=== PATIENT | male | born 1975 ===

== ENCOUNTER 2018-02-18 20:52 | Inpatient (IN) | payer MEDICAID ==
--- NOTE | 2018-02-18 21:39 | C.PDOC ---
History Of Present Illness The patient presents to the ED for evaluation of substance abuse. Patient states he is depressed and he recently relapsed and used heroin. Patient is requesting detox and verbalizes suicidal ideation if he does not receive it. Otherwise, patient denies homicidal ideation and has no other complaints at this time. Time Seen by Provider: 02/18/18 21:39 Chief Complaint (Nursing): Substance Abuse History Per: Patient History/Exam Limitations: no limitations Onset/Duration Of Symptoms: Hrs Current Symptoms Are (Timing): Still Present Suicide/Self Injury Attempted (Context): None Modifying Factor(s): Narcotics (heroin) Severity: None Pain Scale Rating Of: 0 Associated Symptoms: Depression, Suicidal Thoughts. denies: Suicidal Plan Involuntary Hold By: None Recent travel outside of the [place]: No Additional History Per: Patient Past Medical History Reviewed: Historical Data, Nursing Documentation, Vital Signs Vital Signs: Last Vital Signs Temp 98 F 02/18/18 21:11 Pulse 88 02/18/18 21:11 Resp 20 02/18/18 21:11 BP 139/85 02/18/18 21:11 Pulse Ox 99 02/18/18 21:49 - Medical History PMH: Depression Surgical History: No Surg Hx Family History: States: Unknown Family Hx - Social History Hx Alcohol Use: No Hx Substance Use: Yes (heroin snorts) - Immunization History Hx Tetanus Toxoid Vaccination: No Hx Influenza Vaccination: No Hx Pneumococcal Vaccination: No Review Of Systems Constitutional: Negative for: Fever, Chills Cardiovascular: Negative for: Chest Pain, Palpitations Respiratory: Negative for: Shortness of Breath Gastrointestinal: Negative for: Nausea, Vomiting Skin: Negative for: Rash, Lesions, Jaundice, Bruising Neurological: Negative for: Weakness, Numbness Psych: Positive for: Depression, Suicidal ideation, Other (requesting heroin detox ) Physical Exam - Physical Exam Appears: Non-toxic, No Acute Distress Skin: Warm, Dry Head: Normacephalic Eye(s): bilateral: Normal Inspection Oral Mucosa: Moist Neck: Supple Chest: Symmetrical, No Deformity, No Tenderness Cardiovascular: Rhythm Regular, No Murmur Respiratory: No Rales, No Rhonchi, No Wheezing Gastrointestinal/Abdominal: Soft, No Tenderness Back: Normal Inspection Extremity: Normal ROM, Capillary Refill (less than 2 seconds ) Extremity: Bilateral: Atraumatic Neurological/Psych: Oriented x3, Other (depressed affect ) Gait: Steady ED Course And Treatment - Laboratory Results Result Diagrams: 02/18/18 21:48 02/18/18 21:48 O2 Sat by Pulse Oximetry: 99 (on RA) Pulse Ox Interpretation: Normal Progress Note: Bloodwork and urinalysis ordered and reviewed. Disposition Discussed With : Brenda Starr Comment: acceptd the pt on his srvice and took over the care at 12AM Doctor Will See Patient In The: Hospital Counseled Patient/Family Regarding: Studies Performed, Diagnosis - Disposition Referrals: Non [facility] Provider, [Primary Care Provider] - Disposition: HOSPITALIZED Disposition Time: 21:39 Condition: FAIR Forms: [facility] (Fijian) - POA Present On Arrival: None - Clinical Impression Clinical Impression: Drug abuse, Drug dependence, Depression - Scribe Statement The provider has reviewed the documentation as recorded by the Scribe (Yaritza Sanchez) Provider Attestation: All medical record entries made by the Scribe were at my direction and personally dictated by me. I have reviewed the chart and agree that the record accurately reflects my personal performance of the history, physical exam, medical decision making, and the department course for this patient. I have also personally directed, reviewed, and agree with the discharge instructions and disposition. Decision To Admit - Pt Status Changed To: Hospital Disposition Of: Inpatient - Admit Certification Admit to Inpatient:: After my assessment, the patient will require hospitalization for at least two midnights. This is because of the severity of symptoms shown, intensity of services needed, and/or the medical risk in this patient being treated as an outpatient. - InPatient: Physician Admission Certification: I certify that this patient requires 2 or more midnights of care for the following reason:: After my assessment, the patient will require hospitalization for at least two midnights. This is because of the severity of symptoms shown, intensity of services needed, and/or the medical risk in this patient being treated as an outpatient. - . Bed Request Type: Psychiatry Admitting Physician: Brenda Starr Patient Diagnosis: Drug abuse, Drug dependence, Depression
[2018-02-18 21:56] LABS: BASO % 0.4 % (0.0-2.0); EOS # 0.1 K/uL (0.0-0.7); LYMPH # 1.9 K/uL (1.0-4.3); MEAN CORPUSCULAR HEMOGLOBIN 32.9 pg (27.0-31.0); MONO # 0.4 K/uL (0.0-0.8)
[2018-02-18 22:03] LABS: EOS % 1.6 % (0.0-4.0); HEMOGLOBIN 15.3 g/dL (12.0-18.0); LYMPH % 32.7 % (20.0-40.0); MEAN CELL VOLUME 92.7 fL (80.0-94.0); MEAN CORPUSCULAR HGB CONC 35.5 g/dL (33.0-37.0); MEAN PLATELET VOLUME 9.8 fL (7.2-11.7); NEUT # 3.5 K/uL (1.8-7.0); NEUT % 59.3 % (50.0-75.0); NRBC % 0.1 % (0.0-2.0); RBC 4.66 Mil/uL (4.40-5.90); RED CELL DISTRIBUTION WIDTH 14.6 % (11.5-14.5)
[2018-02-18 22:05] LABS: URINE BILIRUBIN NEGATIVE (NEGATIVE); URINE BLOOD NEGATIVE (NEGATIVE); URINE CLARITY Hazy (Clear); URINE COLOR Amber (YELLOW); URINE GLUCOSE (UA) NORMAL (Normal); URINE LEUKOCYTE ESTERASE NEG Leu/uL (Negative); URINE PROTEIN 1+ mg/dL (NEGATIVE)
[2018-02-18 22:14] LABS: ALB/GLOB RATIO 0.9 (1.0-2.1); ALBUMIN 4.1 g/dL (3.5-5.0); ALT/SGPT 140 U/L (21-72); AST/SGOT 71 U/L (17-59); BLOOD UREA NITROGEN 13 mg/dL (9-20); CALCIUM 9.4 mg/dl (8.6-10.4); GFR AFRICAN-AMERICAN > 60; GFR NON-AFRICAN AMERICAN > 60
[2018-02-18 22:35] LABS: BARBITURATES, UR NEGATIVE (NEGATIVE); BENZODIAZEPINES, UR NEGATIVE (NEGATIVE); PHENCYCLIDINE, UR NEGATIVE (NEGATIVE)
[2018-02-18 22:38] LABS: OPIATES, UR POSITIVE (NEGATIVE)
--- NOTE | 2018-02-19 01:48 | PCM.BM ---
<Sejal Edmond - Last Filed: 02/19/18 01:46> Treatment Plan Problems - Problems identified on initial assessmt Depression Date Initiated: 02/19/18 Time Initiated: 01:00 Assessment reference: NA Status: Active suicidal thoughts Date Initiated: 02/19/18 Time Initiated: 01:00 Assessment reference: NA Status: Active Treatment assets and liabiliti Patient Assests: adapts well, cooperative, self-reliant, ADL independent, negotiates basic needs Patient Liabilities: live alone, substance abuse - Milieu Protocol Maintain good personal hygiene: daily Encourage regular showers, daily Remind patient to perform daily oral care, daily Assist patient to perform ADL's Maintain personal safety: every shift Educate patient to report safety concerns to staff, every shift Monitor environment for contraband/sharps Medication safety: Monitor for expected outcome, potential side effects: every shift, Assess barriers to learning: every shift, Assess readiness for medication education: every shift <Tariq Gonzalez - Last Filed: 02/19/18 11:21> - Diagnosis (1) Depression Status: Acute Interventions: 02/19/18 11:21 * Assess/adjust medications daily and /or as needed * See patient on an individual basis 7x/week to assess symptoms of depression * Monitor for side effects & effectiveness of medications (2) Drug dependence Status: Acute Interventions: 02/19/18 11:21 * Assess 7x/week regarding severity of withdrawal * Educate regarding risks, benefits, side effects and alternatives of medications * Use Motivational Interviewing for abstinence * Use CBT for relapse prevention * Medication management for withdrawal symptoms * Encourage medication assisted treatment * <Scarlett Marie - Last Filed: 02/19/18 14:59> Family Contact Family involvement: Patient does not wish Family/SO involvement Family contact: Patient declines to allow family contact at present - Goals for Treatment Patient goals for treatment: "I want to go to a rehab program." Discharge/Continuing Care - Education Needs Education Needs: Patient Medication, Patient Diagnosis/Disease Process - Discharge Discharge Criteria: Free of Suicidal thoughts, Normal sleep pattern, Ability to care for self, No longer exhibiting s/s of withdrawal, Reduction of target symptoms Discharge to:: Substance Abuse Rehab - Treatment Team Participation Discussed with Family/SO: No Was Patient/Family/SO present at Treatment Team Meeting: Yes
--- NOTE | 2018-02-19 11:17 | PCM.PSYCH ---
Initial Psychiatric Evaluation - Initial Psychiatric Evaluation Type of Admission: Voluntary Legal Status: Capacity Chief Complaint (in patient's own words): CC: "I was down and suicidal" History of Present Illness and Precipitating Events: HPI: 43 year old male with PMHx of depression and opiate use disorder presents with depression worsening over the last 8 months. Patient was last hospitalized at [facility] for depression last Jun. Patient states he thinks a lot and has been stressed with personal issues but unable to provide details when questioned. 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 He last used 5 bags of heroin yesterday. He reports withdrawal symptoms including nausea , headaches, cramps and sweating. He has a psychiatrist but failed to follow up or refill his medications after his hospitalization in Jun. Associated symptoms include intermittent anxiety for which he used to take Xanax and Klonopin but wishes to avoid, poor memory, and auditory hallucinations. He has thought about suicide in the past, coming close to jumping off a building in 2017, but currently denies suicidal ideation. Denies homicidal ideation, paranoia, and visual hallucinations. Patient states he wishes to be clean and get back on his depression medications which had been working for him. PsychHx: multiple hospitalizations for depression as per HPI, suicidal ideation as per HPI; has a psychiatrist that he does not follow up with, previously taking Wellbutrin 150 mg, Neurontin 800 mg tid which have been effective SocialHx: lives alone, has two adult children whom he wishes to keep out of his rehab process until he is close to completion; smokes <1 ppd for 15 years; uses 10 bags of heroin/day snorted; infrequent alcohol consumption; works as a [employer], self employed. PMHx: None reported Current Medications: Active Medications Generic Name Dose Route Start Last Admin Trade Name Freq PRN Reason Stop Dose Admin Clonidine HCl 0.1 mg 02/19/18 06:08 Catapres PO Q8 PRN COWS Score More or Equal to 5 Fluoxetine HCl 20 mg 02/19/18 10:00 02/19/18 10:30 Prozac PO 20 mg DAILY TIBURCIO Administration Hydroxyzine HCl 50 mg 02/19/18 06:09 Atarax PO Q6H PRN Anxiety Ibuprofen 600 mg 02/19/18 06:09 Motrin Tab PO Q6H PRN Pain, moderate (4-7) Loperamide HCl 2 mg 02/19/18 06:08 Imodium PO Q8 PRN Diarrhea Methadone HCl 15 mg 02/19/18 17:00 Methadone PO 02/19/18 17:01 ONCE ONE Methadone HCl 0 mg 02/20/18 10:00 Methadone PO 02/23/18 09:59 Q24H TIBURCIO Taper Ondansetron HCl 4 mg 02/19/18 06:08 Zofran Tab PO Q8 PRN Nausea/Vomiting Pneumococcal Polyvalent Vaccine 0.5 ml 02/22/18 10:00 Pneumovax 23 Vaccine IM 02/22/18 10:01 .ONCE ONE Trazodone HCl 100 mg 02/19/18 22:00 Desyrel PO HS TIBURCIO Past Psychiatric History - Past Psychiatric History Previous Treatment History: Inpatient Pertinent Medical Hx (Current Medical&Sleep Prob, Allergies): Allergies Allergy/AdvReac Type Severity Reaction Status Date / Time No Known Allergies Allergy Unverified 02/18/18 21:11 No Known Home Med 02/18/18 Review of Systems - Review of Systems All systems: reviewed and no additional remarkable complaints except - Psychiatric Psychiatric: Abnormal Sleep Pattern, Anxiety, Auditory Hallucinations, Depression, Suicidal Ideation Mental Status Examination - Personal Presentation Personal Presentation: Looks stated age - Affect Affect: Constricted, Depressed - Motor Activity Motor Activity: Calm - Reliability in Providing Information Reliability in Providing Information: Good - Speech Speech: Organized - Mood Mood: Depressed - Formal Thought Process Formal Thought Process: No Impairment - Hallucinations/Delusions Hallucinations: Auditory - Obsessions/Compulsions Obsessions: No Compulsions: No - Cognitive Functions Orientation: Person, Place, Situation, Time Sensorium: Alert Attention/Concentration: Attentive, Easily distracted Estimate of Intelligence: Below average Judgement: Imparied, as evidence by: Poor judgement, Imparied, as evidence by: Lack of insight into illness - Risk Risk: Suicidal, Withdrawal, Diminished functioning - Strength & Assets Inventory Strength & Assets Inventory: Employment status DSM 5 DX - DSM 5 DSM 5 Diagnosis: Major Depressive Disorder recurrent severe without psychotic features Opiate use disorder severe Opiate withdrawal - Recommended/Plan of Treatment Treatment Recommendations and Plan of Treatment: Major Depressive Disorder recurrent severe without psychotic features -Psychoeducation -Supportive therapy, group therapy, individual therapy -Fluoxetine 20 mg PO daily -Atarax 50 mg PO Q6 prn -Seroquel 100 mg PO qhs -Trazodone 100 mg PO qhs Opiate use disorder severe Opiate withdrawal -Psychoeducation -Supportive therapy, group therapy, individual therapy -[place] for abstinence -Methadone taper -Clonodine 0.1 mg PO Q8 prn -Ibuprofen 600 mg PO Q6 prn -Imodium 2 mg PO Q8 prn -Zofran 4 mg PO Q8 prn - Smoking Cessation Smoking Cessation Initiated: No
--- NOTE | 2018-02-20 17:18 | PCM.PYCHPN ---
Psychiatric Progress Note - Psychiatric Progress Note Patient seen today, length of contact: 18 min Patient Chief Complaint: "I'm withdrawing" Problems Identified/Issues Discussed: The pt is seen, chart reviewed, case discussed with staff. The pt is compliant with medications and reports no side-effects. Symptoms are improving but needs more time to stabilize. After care discussed, support and psychoeducation given. He is asking for methadone - dose adjusted Medication Change: Yes (detox changes daily) Medical Record Reviewed: Yes Mental Status Examination - Cognitive Function Orientation: Person, Place, Situation, Time Memory: Intact Attention: WNL Concentration: WNL Association: WNL Fund of Knowledge: WNL - Mood Mood: Depressed - Affect Affect: Constricted, Depressed - Speech Speech: Appropriate - Formal Thought Process Formal Thought Process: No Impairment - Suicidal Ideation Suicidal Ideation: No - Homicidal Ideation Homicidal Ideation: No Goal/Treatment Plan - Goal/Treatment Plan Need for Continued Stay: Discharge may exacerbated symptoms, Severe functional impairment Progress Toward Problem(s) and Goals/Treatment Plan: Methadone detox Prozac for depression As needed medications Gabapentin for augmentation and anxiety All risks, benefits and alternatives of medications, including no medications, discussed and the patient understood and agreed. Attend groups and activities Supportive therapy and psychoeducation [place] for abstinence CBT for relapse prevention Encourage MAT Refer to rehab or IOP Attend self-help groups as well [place] for smoking cessation and patch if needed
[2018-02-21 06:30] VITALS: O2SAT 99
--- NOTE | 2018-02-22 09:39 | PCM.PYCHPN ---
Psychiatric Progress Note - Psychiatric Progress Note Patient seen today, length of contact: 18 min Patient Chief Complaint: CC: "I was down and suicidal" Problems Identified/Issues Discussed: Patient seen and evaluated, chart reviewed and discussed with the nurse. Patient states he is sleeping and his depression is improving but will ultimately need more time at inpatient rehab which he looks forward to. He has been conversive with other patients Patient is compliant with medications and denies any side effects. Symptoms are improving but need more time to stabilize. Support and psychoeducation given. Medication Change: Yes (detox changes daily) Medical Record Reviewed: Yes Mental Status Examination - Cognitive Function Orientation: Person, Place, Situation, Time Memory: Intact Attention: WNL Concentration: WNL Association: WNL Fund of Knowledge: WNL - Mood Mood: Depressed - Affect Affect: Constricted - Speech Speech: Appropriate - Formal Thought Process Formal Thought Process: No Impairment - Suicidal Ideation Suicidal Ideation: No - Homicidal Ideation Homicidal Ideation: No Goal/Treatment Plan - Goal/Treatment Plan Need for Continued Stay: Discharge may exacerbated symptoms, Severe functional impairment Progress Toward Problem(s) and Goals/Treatment Plan: Major Depressive Disorder recurrent severe without psychotic features -Psychoeducation -Supportive therapy, group therapy, individual therapy -Fluoxetine 20 mg PO daily -Atarax 50 mg PO Q6 prn -Seroquel 100 mg PO qhs -Trazodone 100 mg PO qhs Opiate use disorder severe Opiate withdrawal -Psychoeducation -Supportive therapy, group therapy, individual therapy -[place] for abstinence -Methadone taper -Clonodine 0.1 mg PO Q8 prn -Ibuprofen 600 mg PO Q6 prn -Imodium 2 mg PO Q8 prn -Zofran 4 mg PO Q8 prn
[2018-02-22] MEDS ORDERED: Pneumococcal 23-Valent Vaccine IM ONE (10:00)
--- NOTE | 2018-02-23 14:40 | PCM.PYCHPN ---
Psychiatric Progress Note - Psychiatric Progress Note Patient seen today, length of contact: 18 min Patient Chief Complaint: CC: "I was down and suicidal" Problems Identified/Issues Discussed: Patient seen and evaluated, chart reviewed and discussed with the nurse. Patient states he slept well and that his depression is improving. He looks forward to inpatient rehab. He has been conversive with other patients Patient is compliant with medications and denies any side effects. Symptoms are improving but need more time to stabilize. Support and psychoeducation given. Medication Change: Yes (detox changes daily) Medical Record Reviewed: Yes Mental Status Examination - Cognitive Function Orientation: Person, Place, Situation, Time Memory: Intact Attention: WNL Concentration: WNL Association: WNL Fund of Knowledge: WNL - Mood Mood: Depressed - Affect Affect: Broad - Speech Speech: Appropriate - Formal Thought Process Formal Thought Process: No Impairment - Suicidal Ideation Suicidal Ideation: No - Homicidal Ideation Homicidal Ideation: No Goal/Treatment Plan - Goal/Treatment Plan Need for Continued Stay: Discharge may exacerbated symptoms, Severe functional impairment Progress Toward Problem(s) and Goals/Treatment Plan: Major Depressive Disorder recurrent severe without psychotic features -Psychoeducation -Supportive therapy, group therapy, individual therapy -Fluoxetine 20 mg PO daily -Atarax 50 mg PO Q6 prn -Seroquel 100 mg PO qhs -Trazodone 100 mg PO qhs Opiate use disorder severe Opiate withdrawal -Psychoeducation -Supportive therapy, group therapy, individual therapy -[place] for abstinence -Methadone taper -Clonodine 0.1 mg PO Q8 prn -Ibuprofen 600 mg PO Q6 prn -Imodium 2 mg PO Q8 prn -Zofran 4 mg PO Q8 prn
--- NOTE | 2018-02-24 10:35 | PCM.PYCHPN ---
Psychiatric Progress Note - Psychiatric Progress Note Patient seen today, length of contact: 16 Patient Chief Complaint: CC: "I was down and suicidal" Problems Identified/Issues Discussed: Patient seen and evaluated, chart reviewed and discussed with the nurse. Patient states he slept well and that his depression is improving. He looks forward to inpatient rehab. He has been conversive and interacting with other patients. Patient is compliant with medications and denies any side effects. Symptoms are improving but need more time to stabilize. Support and psychoeducation given. Medication Change: Yes (detox changes daily) Medical Record Reviewed: Yes Mental Status Examination - Cognitive Function Orientation: Person, Place, Situation, Time Memory: Intact Attention: WNL Concentration: WNL Association: WNL Fund of Knowledge: WNL - Mood Additional comments: appropriate mood - Affect Affect: Broad - Speech Speech: Appropriate - Formal Thought Process Formal Thought Process: No Impairment - Suicidal Ideation Suicidal Ideation: No - Homicidal Ideation Homicidal Ideation: No Goal/Treatment Plan - Goal/Treatment Plan Need for Continued Stay: Discharge may exacerbated symptoms, Severe functional impairment Progress Toward Problem(s) and Goals/Treatment Plan: Major Depressive Disorder recurrent severe without psychotic features -Psychoeducation -Supportive therapy, group therapy, individual therapy -Fluoxetine 20 mg PO daily -Atarax 50 mg PO Q6 prn -Seroquel 100 mg PO qhs -Trazodone 100 mg PO qhs Opiate use disorder severe Opiate withdrawal -Psychoeducation -Supportive therapy, group therapy, individual therapy -[place] for abstinence -Methadone taper -Clonodine 0.1 mg PO Q8 prn -Ibuprofen 600 mg PO Q6 prn -Imodium 2 mg PO Q8 prn -Zofran 4 mg PO Q8 prn
[2018-02-24] MEDS ORDERED: Aluminum Hydroxide/Magnesium Hydroxide Susp (30 mL) PO PRN (20:18)
--- NOTE | 2018-02-25 15:52 | PCM.PYCHPN ---
Psychiatric Progress Note - Psychiatric Progress Note Patient seen today, length of contact: 16 Patient Chief Complaint: CC: "I am feeling much better" Problems Identified/Issues Discussed: Patient seen and evaluated, chart reviewed and discussed with the nurse. Patient states he slept well and that his depression is improving. He looks forward to inpatient rehab. He has been conversing and interacting with other patients. Patient is compliant with medications and denies any side effects. Symptoms are improving but need more time to stabilize. Support and psychoeducation given. Medication Change: Yes (detox changes daily) Medical Record Reviewed: Yes Mental Status Examination - Cognitive Function Orientation: Person, Place, Situation, Time Memory: Intact Attention: WNL Concentration: WNL Association: WNL Fund of Knowledge: WNL - Mood Mood: Depressed - Affect Affect: Broad - Speech Speech: Appropriate - Formal Thought Process Formal Thought Process: No Impairment - Suicidal Ideation Suicidal Ideation: No - Homicidal Ideation Homicidal Ideation: No Goal/Treatment Plan - Goal/Treatment Plan Need for Continued Stay: Discharge may exacerbated symptoms, Severe functional impairment Progress Toward Problem(s) and Goals/Treatment Plan: Major Depressive Disorder recurrent severe without psychotic features -Psychoeducation -Supportive therapy, group therapy, individual therapy -Fluoxetine 20 mg PO daily -Atarax 50 mg PO Q6 prn -Seroquel 100 mg PO qhs -Trazodone 100 mg PO qhs Opiate use disorder severe Opiate withdrawal -Psychoeducation -Supportive therapy, group therapy, individual therapy -[place] for abstinence -Methadone taper -Clonodine 0.1 mg PO Q8 prn -Ibuprofen 600 mg PO Q6 prn -Imodium 2 mg PO Q8 prn -Zofran 4 mg PO Q8 prn - Smoking Cessation Smoking Cessation Initiated: No
[2018-02-26 06:18] VITALS: BP 108/79; PULSE 74; RESP 18; TEMP 97.4
--- NOTE | 2018-02-26 10:13 | PCM.PYCHDC ---
Mental Status Examination - Mental Status Examination Orientation: Person, Place, Situation, Time Memory: Intact Mood: Neutral Affect: Constricted Speech: Soft Attention: WNL Concentration: WNL Association: WNL Fund of Knowledge: WNL Formal Thought Process: No Impairment Description of patient's judgement and insight: good, fair Psychotic Thoughts and Behaviors: denies any AVH Suicidal Ideation: No Current Homicidal Ideation?: No Discharge Summary - Discharge Note Reason for Hospitalization: HPI: 43 year old male with PMHx of depression and opiate use disorder presents with depression worsening over the last 8 months. Patient was last hospitalized at [facility] for depression last Jun. Patient states he thinks a lot and has been stressed with personal issues but unable to provide details when questioned. 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 He last used 5 bags of heroin yesterday. He reports withdrawal symptoms including nausea , headaches, cramps and sweating. He has a psychiatrist but failed to follow up or refill his medications after his hospitalization in Jun. Associated symptoms include intermittent anxiety for which he used to take Xanax and Klonopin but wishes to avoid, poor memory, and auditory hallucinations. He has thought about suicide in the past, coming close to jumping off a building in 2017, but currently denies suicidal ideation. Denies homicidal ideation, paranoia, and visual hallucinations. Patient states he wishes to be clean and get back on his depression medications which had been working for him. Consultations:: List each consultation separately and include: 1. Reason for request. 2. Findings. 3. Follow-up Summary of Hospital Course include:: 1. Description of specific treatment plan utilized for patients during their course of treatmen. 2. Summarize the time- course for resolution of acute symptoms and/or regressed behaviors. 3. Describe issues identified and worked on during hospitalization. 4. Describe medication utilized. 5. Describe medical problems identified and treated. 6. Reassessment of suicide risk Summary of Hospital Course: During the course of his stay, patient (pt) started progressively improving and he no longer remained irritable, depressed, and suicidal. His mood and anxiety symptoms were improved and he started attending groups and meetings and started socializing. Patient denied any feelings of hopelessness, helplessness, and worthlessness, denied any problem with the sleep or appetite, denied suicidal ideation or homicidal ideation. Pt denied any auditory or visual hallucinations. He denied any withdrawal symptoms. Some changes were made in his current medications and patient was discharged on following medications. He tolerated these medications very well and denied any side effects. [facility] is [facility] - Diagnosis (1) Depression Status: Acute (2) Drug dependence Status: Acute - Final Diagnosis (DSM 5) Condition upon Discharge: FAIR DSM 5: Major Depressive Disorder recurrent severe without psychotic features Opiate use disorder severe Opiate withdrawal Disposition: HOME/ ROUTINE Follow-up Treatment Plan: Education: Pt was educated and counseled about the risks and benefits of taking and not taking medications. Pt was educated and counseled about the risks of drinking and abusing drugs. Pt was educated and counseled to go to the ER or call 911 if pt develop suicidal ideation or homicidal ideation, worsening of symptoms or severe side effects of the meds. Prescriptions/Medication Reconciliation: FLUoxetine [Prozac] 20 mg PO DAILY #30 cap Gabapentin [Neurontin] 300 mg PO BID #60 cap traZODone [Desyrel] 100 mg PO HS #30 tab - Smoking Cessation Smoking Cessation Medication prescribed: No - Antipsychotic Medications Pt discharged on 2 or more routine antipsychotic medications: No
== END 2018-02-26 12:46 | disposition home or self-care (01) | DRG 430 ==
LOC: C.ER 20:52 → SUPCPDRO 20:52 → C.5E 02-19 00:11
PROVIDERS: ADMIT Psychiatry & Neurology Psychiatry; ATTEND Psychiatry & Neurology Psychiatry
PROC: GZ3ZZZZ Medication Management (ICD-10-PCS; principal; 2018-02-19)
PROC: HZ2ZZZZ Detoxification Services for Substance Abuse Treatment (ICD-10-PCS; 2018-02-19)
PROC: HZ59ZZZ Individual Psychotherapy for Substance Abuse Treatment, Supportive (ICD-10-PCS; 2018-02-19)
PROC: GZHZZZZ Group Psychotherapy (ICD-10-PCS; 2018-02-19)
PROC: HZ46ZZZ Group Counseling for Substance Abuse Treatment, Psychoeducation (ICD-10-PCS; 2018-02-19)
PROC: GZ56ZZZ Individual Psychotherapy, Supportive (ICD-10-PCS; 2018-02-19)
DX: F33.2 Major depressive disorder, recurrent severe without psychotic features (principal); F11.23 Opioid dependence with withdrawal; R45.851 Suicidal ideations; F41.9 Anxiety disorder, unspecified; F17.210 Nicotine dependence, cigarettes, uncomplicated

== ENCOUNTER 2018-04-28 18:00 | Inpatient (IN) | payer MEDICAID ==
[2018-04-28 19:21] LABS: BASO % 0.6 % (0.0-2.0); EOS # 0.1 K/uL (0.0-0.7); EOS % 1.6 % (0.0-4.0); HEMOGLOBIN 14.3 g/dL (12.0-18.0); LYMPH # 1.5 K/uL (1.0-4.3); LYMPH % 25.9 % (20.0-40.0); MEAN CELL VOLUME 93.4 fL (80.0-94.0); MEAN CORPUSCULAR HEMOGLOBIN 32.7 pg (27.0-31.0); MEAN PLATELET VOLUME 11.1 fL (7.2-11.7); MONO # 0.4 K/uL (0.0-0.8); NEUT # 3.8 K/uL (1.8-7.0); NEUT % 65.9 % (50.0-75.0); NRBC % 0.1 % (0.0-2.0); RBC 4.37 Mil/uL (4.40-5.90); RED CELL DISTRIBUTION WIDTH 13.7 % (11.5-14.5); WHITE BLOOD COUNT 5.8 K/uL (4.8-10.8)
[2018-04-28 19:26] LABS: URINE BACTERIA RARE (<OCC); URINE BILIRUBIN NEGATIVE (NEGATIVE); URINE BLOOD NEGATIVE (NEGATIVE); URINE CLARITY Clear (Clear); URINE COLOR Amber (YELLOW); URINE GLUCOSE (UA) NORMAL (Normal); URINE LEUKOCYTE ESTERASE NEG Leu/uL (Negative); URINE PROTEIN NEGATIVE (NEGATIVE)
[2018-04-28 19:37] LABS: ALBUMIN 4.3 g/dL (3.5-5.0); ALT/SGPT 137 U/L (21-72); AST/SGOT 84 U/L (17-59); BARBITURATES, UR NEGATIVE (NEGATIVE); BENZODIAZEPINES, UR NEGATIVE (NEGATIVE); BLOOD UREA NITROGEN 15 mg/dL (9-20); CALCIUM 9.2 mg/dl (8.6-10.4); GFR AFRICAN-AMERICAN > 60; GFR NON-AFRICAN AMERICAN > 60; PHENCYCLIDINE, UR NEGATIVE (NEGATIVE)
--- NOTE | 2018-04-28 19:48 | C.PDOC ---
History Of Present Illness 43yo male, with history of substance abuse, underwent detox 18 months ago and was clean until 2 weeks ago. Patient states he was staying with his father and his father 2 weeks ago, and he lost the apartment and has been staying at hotels since then. He reports he started snorting heroin again. 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 He admits to using IV heroin x 3 days and states last night he wanted to cut his wrists. He does report suicidal ideation and denies any other medical complaints. Time Seen by Provider: 04/28/18 18:53 Chief Complaint (Nursing): Psychiatric Evaluation History Per: Patient History/Exam Limitations: no limitations Onset/Duration Of Symptoms: Days Current Symptoms Are (Timing): Still Present Modifying Factor(s): Narcotics Associated Symptoms: Suicidal Thoughts Past Medical History Reviewed: Historical Data, Nursing Documentation, Vital Signs Vital Signs: Last Vital Signs Temp 97.7 F 04/28/18 19:58 Pulse 79 04/28/18 19:58 Resp 18 04/28/18 19:58 BP 121/78 04/28/18 19:58 Pulse Ox 99 04/28/18 19:58 - Medical History PMH: Depression Denies: Diabetes, Hepatitis, HIV, HTN, Seizures, Sexually Transmitted Disease Surgical History: No Surg Hx - [facility] Procedures DETOXIFICATION SERVICES FOR SUBSTANCE ABUSE TREATMENT (02/19/18) GROUP HAZARDOUS SUBSTANCES ENGINEER FOR SUBSTANCE ABUSE TREATMENT, PSYCHOEDUCATION (02/19/18) GROUP PSYCHOTHERAPY (02/19/18) INDIV PSYCHOTHERAPY FOR SUBSTANCE ABUSE TREATMENT, SUPPORT (02/19/18) INDIVIDUAL PSYCHOTHERAPY, SUPPORTIVE (02/19/18) MEDICATION MANAGEMENT (02/19/18) Family History: States: Unknown Family Hx - Social History Hx Alcohol Use: No Hx Substance Use: Yes - Immunization History Hx Tetanus Toxoid Vaccination: No Hx Influenza Vaccination: No Hx Pneumococcal Vaccination: No Review Of Systems Except As Marked, All Systems Reviewed And Found Negative. Constitutional: Negative for: Fever, Chills Cardiovascular: Negative for: Chest Pain Respiratory: Negative for: Shortness of Breath Gastrointestinal: Negative for: Abdominal Pain Psych: Positive for: Suicidal ideation Physical Exam - Physical Exam Appears: Non-toxic, No Acute Distress Skin: Normal Color, Warm, Dry Head: Atraumatic, Normacephalic Eye(s): bilateral: Normal Inspection Oral Mucosa: Moist Neck: Normal ROM, Supple Chest: Symmetrical Cardiovascular: Rhythm Regular Respiratory: Normal Breath Sounds Gastrointestinal/Abdominal: Soft, No Tenderness Back: Normal Inspection Extremity: Normal ROM, Other (no lacerations noted to wrists) Neurological/Psych: Oriented x3, Normal Speech, Normal Cognition, Normal Motor, Normal Sensation ED Course And Treatment - Laboratory Results Result Diagrams: 04/28/18 19:17 04/28/18 19:17 Lab Interpretation: No Acute Changes O2 Sat by Pulse Oximetry: 99 (RA) Pulse Ox Interpretation: Normal Progress Note: Patient is medically cleared for psychiaric admission. Medical Decision Making Medical Decision Making: Plan: -- Urinalysis -- UDS -- Labs -- 1:1 Observation Disposition - Disposition Disposition: HOSPITALIZED Disposition Time: 21:59 Condition: STABLE - POA Present On Arrival: None - Clinical Impression Clinical Impression: Major depress dis, severe, Opiate abuse, continuous - Scribe Statement The provider has reviewed the documentation as recorded by the Scribe (Malika Whalen) Provider Attestation: All medical record entries made by the Scribe were at my direction and personally dictated by me. I have reviewed the chart and agree that the record accurately reflects my personal performance of the history, physical exam, medical decision making, and the department course for this patient. I have also personally directed, reviewed, and agree with the discharge instructions and disposition.
[2018-04-28 19:52] LABS: OPIATES, UR POSITIVE (NEGATIVE)
--- NOTE | 2018-04-28 22:58 | PCM.BM ---
<Wild Holliday - Last Filed: 04/28/18 22:56> Treatment Plan Problems - Problems identified on initial assessmt Depression Date Initiated: 04/28/18 Time Initiated: 22:56 Status: Active Substance Abuse Date Initiated: 04/28/18 Time Initiated: 22:56 Status: Active Treatment assets and liabiliti Patient Assests: adapts well, cooperative, self-reliant, ADL independent, negotiates basic needs Patient Liabilities: live alone, substance abuse (Heroin), other (Father recently passed) - Milieu Protocol Maintain good personal hygiene: daily Encourage regular showers, daily Remind patient to perform daily oral care, every shift Assist patient to perform ADL's Conduct patient checks and document Observation sheet: Q15 minutes (For safety) Maintain personal safety: every shift Educate patient to report safety concerns to staff, every shift Monitor environment for contraband/sharps Medication safety: Monitor for expected outcome, potential side effects: every shift, Assess barriers to learning: every shift, Assess readiness for medication education: every shift <Scarlett Marie - Last Filed: 04/30/18 13:47> Family Contact Family involvement: Patient does not wish Family/SO involvement Family contact: Patient declines to allow family contact at present - Goals for Treatment Patient goals for treatment: "I want to go to a rehab." Discharge/Continuing Care - Education Needs Education Needs: Patient Medication, Patient Diagnosis/Disease Process, Patient Coping Skills, Patient Placement options, Patient Community resources - Discharge Discharge Criteria: Free of Suicidal thoughts, Normal sleep pattern, Ability to care for self, No longer exhibiting s/s of withdrawal, Reduction of target symptoms Discharge to:: Substance Abuse Rehab - Treatment Team Participation Discussed with Family/SO: No Was Patient/Family/SO present at Treatment Team Meeting: Yes <Kieran Salgado - Last Filed: 04/30/18 15:39> - Diagnosis (1) Major depressive disorder, recurrent severe without psychotic features Status: Acute Interventions: 04/30/18 15:38 * Assess/adjust medications daily and /or as needed * See patient on an individual basis 7x/week to assess symptoms of depression * Monitor for side effects & effectiveness of medications (2) Opioid use disorder, severe, dependence Status: Acute Interventions: 04/30/18 15:39 * Assess 7x/week regarding severity of withdrawal * Educate regarding risks, benefits, side effects and alternatives of medications * Use Motivational Interviewing for abstinence * Use CBT for relapse prevention * Medication management for withdrawal symptoms * Encourage medication assisted treatment
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
--- NOTE | 2018-04-30 15:55 | PCM.PYCHPN ---
Psychiatric Progress Note - Psychiatric Progress Note Patient seen today, length of contact: 15 minutes Patient Chief Complaint: I am feeling little better. Problems Identified/Issues Discussed: Patient seen, chart reviewed, case discussed with the staff. Issues related to illness and treatment were discussed with the patient and staff. Reported compliant with treatment with no adverse affects. Top getting treatment very well. Reported feeling little better. Risk and benefits of medications discussed with the patient. Patient understood and agreed. Aftercare discussed with the patient. At the time of evaluation, patient was awake alert oriented 3, had no delusions , no auditory visual hallucinations, no suicidal ideations or homicidal ideations. Medical Problems: None reported Diagnostic Results: Reviewed DSM 5 Symptoms Update: Some improvement with treatment Medication Change: No Medical Record Reviewed: Yes Mental Status Examination - Cognitive Function Orientation: Person, Place, Situation, Time Memory: Intact Attention: WNL Concentration: WNL Association: WNL Fund of Knowledge: [facility] Decription of patient's judgement and insights: Fair - Mood Mood: Depressed - Affect Affect: Depressed - Speech Speech: Appropriate - Formal Thought Process Formal Thought Process: No Impairment Psychotic Thoughts and Behaviors: None - Suicidal Ideation Suicidal Ideation: No - Homicidal Ideation Homicidal Ideation: No Goal/Treatment Plan - Goal/Treatment Plan Need for Continued Stay: Remain at risks for inpatient hospitalization, Discharge may exacerbated symptoms, Severe functional impairment Progress Toward Problem(s) and Goals/Treatment Plan: Patient education. Supportive therapy. CBT for her relapse prevention. [place] for abstinence. Continue treatment as before. Estimated Date of D/C: 05/07/18 - Smoking Cessation Smoking Cessation Initiated: Yes
--- NOTE | 2018-05-01 14:34 | PCM.PYCHPN ---
Psychiatric Progress Note - Psychiatric Progress Note Patient seen today, length of contact: 15 minutes Patient Chief Complaint: I am feeling little better. Problems Identified/Issues Discussed: Patient seen, chart reviewed, case discussed with the staff. Issues related to illness and treatment were discussed with the patient and staff. Reported compliant with treatment with no adverse affects. Top getting treatment very well. Reported feeling little better. Asking for more methadone. Risk and benefits of medications discussed with the patient. Patient understood and agreed. Aftercare discussed with the patient. At the time of evaluation, patient was awake alert oriented 3, had no delusions , no auditory visual hallucinations, no suicidal ideations or homicidal ideations. Medical Problems: None reported Diagnostic Results: Reviewed DSM 5 Symptoms Update: Improving with treatment. Medication Change: No Medical Record Reviewed: Yes Mental Status Examination - Cognitive Function Orientation: Person, Place, Situation, Time Memory: Intact Attention: WNL Concentration: WNL Association: WN Fund of Knowledge: [facility] Decription of patient's judgement and insights: Fair - Mood Mood: Depressed (Much less than before) - Affect Affect: Other (Appropriate) - Speech Speech: Appropriate - Formal Thought Process Formal Thought Process: No Impairment Psychotic Thoughts and Behaviors: None - Suicidal Ideation Suicidal Ideation: No - Homicidal Ideation Homicidal Ideation: No Goal/Treatment Plan - Goal/Treatment Plan Need for Continued Stay: Remain at risks for inpatient hospitalization, Discharge may exacerbated symptoms, Severe functional impairment Progress Toward Problem(s) and Goals/Treatment Plan: Patient education. Supportive therapy. CBT for her relapse prevention. [place] for abstinence. Continue treatment as before. Estimated Date of D/C: 05/04/18 - Smoking Cessation Smoking Cessation Initiated: Yes
--- NOTE | 2018-05-02 17:33 | PCM.PYCHPN ---
Psychiatric Progress Note - Psychiatric Progress Note Patient seen today, length of contact: 15 minutes Patient Chief Complaint: I am feeling better. Problems Identified/Issues Discussed: Patient seen, chart reviewed, case discussed with the staff. Issues related to illness and treatment were discussed with the patient and staff. Reported compliant with treatment with no adverse affects. Top getting treatment very well. Reported feeling better. Risk and benefits of medications discussed with the patient. Patient understood and agreed. Aftercare discussed with the patient. At the time of evaluation, patient was awake alert oriented 3, had no delusions , no auditory visual hallucinations, no suicidal ideations or homicidal ideations. Medical Problems: None reported Diagnostic Results: Reviewed DSM 5 Symptoms Update: Improving with treatment Medication Change: No Medical Record Reviewed: Yes Mental Status Examination - Cognitive Function Orientation: Person, Place, Situation, Time Memory: Intact Attention: WNL Concentration: WNL Association: WN Fund of Knowledge: [facility] Decription of patient's judgement and insights: Fair - Mood Mood: Neutral - Affect Affect: Other (Appropriate) - Speech Speech: Appropriate - Formal Thought Process Formal Thought Process: No Impairment Psychotic Thoughts and Behaviors: None - Suicidal Ideation Suicidal Ideation: No - Homicidal Ideation Homicidal Ideation: No Goal/Treatment Plan - Goal/Treatment Plan Need for Continued Stay: Remain at risks for inpatient hospitalization, Discharge may exacerbated symptoms, Severe functional impairment Progress Toward Problem(s) and Goals/Treatment Plan: Patient education. Supportive therapy. CBT for her relapse prevention. [place] for abstinence. Continue treatment as before. Estimated Date of D/C: 05/04/18 - Smoking Cessation Smoking Cessation Initiated: Yes
[2018-05-03 06:07] VITALS: O2SAT 98
--- NOTE | 2018-05-03 12:16 | PCM.PYCHPN ---
Psychiatric Progress Note - Psychiatric Progress Note Patient seen today, length of contact: 15 minutes Patient Chief Complaint: I am feeling little better.' Problems Identified/Issues Discussed: Patient seen and evaluated, chart reviewed and discussed with the nurse. He reports some improvement in his depressed mood, sleep and appetite. He reports some improvement in the withdrawal symptoms. He is looking forward to going to rehab after discharge. Patient is compliant with medications and denies any side effects. Symptoms are improving but need more time to stabilize. Support and psychoeducation given. Medication Change: No Medical Record Reviewed: Yes Mental Status Examination - Cognitive Function Orientation: Person, Place, Situation, Time Memory: Intact Attention: WNL Concentration: WNL Association: WNL Fund of Knowledge: WNL - Mood Mood: Anxious - Affect Affect: Constricted - Speech Speech: Appropriate - Formal Thought Process Formal Thought Process: No Impairment - Suicidal Ideation Suicidal Ideation: No - Homicidal Ideation Homicidal Ideation: No Goal/Treatment Plan - Goal/Treatment Plan Need for Continued Stay: Remain at risks for inpatient hospitalization, Discharge may exacerbated symptoms, Severe functional impairment Progress Toward Problem(s) and Goals/Treatment Plan: Major depressive disorder recurrent severe without psychotic features Opioid use disorder severe Opioid withdrawal -CBT -Psychoeducation -Supportive therapy, group therapy, individual therapy -Prozac 20 mg -Neurontin 400 mg by mouth 3 times a day -Trazodone 100 mg by mouth daily at bedtime -Clonidine when necessary -Methadone taper - completed -prn meds -Use [place] for abstinence -Librium prn Estimated Date of D/C: 05/06/18 - Smoking Cessation Smoking Cessation Initiated: No
[2018-05-03] MEDS ORDERED: Pneumococcal 23-Valent Vaccine IM ONE (15:00)
--- NOTE | 2018-05-04 06:39 | PCM.PYCHPN ---
Psychiatric Progress Note - Psychiatric Progress Note Patient seen today, length of contact: 15 minutes Patient Chief Complaint: I am feeling little better.' Problems Identified/Issues Discussed: Patient seen and evaluated, chart reviewed and discussed with the nurse. He reports some improvement in his depressed mood, sleep and appetite. He reports some improvement in the withdrawal symptoms. He is looking forward to going to rehab after discharge. Patient is compliant with medications and denies any side effects. Symptoms are improving but need more time to stabilize. Support and psychoeducation given. Medication Change: No Medical Record Reviewed: Yes Mental Status Examination - Cognitive Function Orientation: Person, Place, Situation, Time Memory: Intact Attention: WNL Concentration: WNL Association: WNL Fund of Knowledge: WNL - Mood Mood: Anxious - Affect Affect: Constricted - Speech Speech: Appropriate - Formal Thought Process Formal Thought Process: No Impairment - Suicidal Ideation Suicidal Ideation: No - Homicidal Ideation Homicidal Ideation: No Goal/Treatment Plan - Goal/Treatment Plan Need for Continued Stay: Remain at risks for inpatient hospitalization, Discharge may exacerbated symptoms, Severe functional impairment Progress Toward Problem(s) and Goals/Treatment Plan: Major depressive disorder recurrent severe without psychotic features Opioid use disorder severe Opioid withdrawal -CBT -Psychoeducation -Supportive therapy, group therapy, individual therapy -Prozac 20 mg -Neurontin 400 mg by mouth 3 times a day -Trazodone 100 mg by mouth daily at bedtime -Clonidine when necessary -Methadone taper - completed -prn meds -Use ID for abstinence -Librium prn Estimated Date of D/C: 05/06/18
--- NOTE | 2018-05-04 10:01 | PCM.PYCHDC ---
Mental Status Examination - Mental Status Examination Orientation: Person, Place, Situation, Time Memory: Intact Mood: Neutral Affect: Constricted Speech: Soft Attention: WNL Concentration: WNL Association: WNL Fund of Knowledge: WNL Formal Thought Process: No Impairment Description of patient's judgement and insight: good, fair Psychotic Thoughts and Behaviors: denies any AVH Suicidal Ideation: No Current Homicidal Ideation?: No Discharge Summary - Discharge Note Reason for Hospitalization: Patient is a 43 years old, single, employed as a do[employer], male with history of depression and opiate use was admitted due to worsening symptoms of depression and withdrawing from opiate use. Reported depressed for last 20 years, on medications at times, noncompliant for last few months. Increased and depression after the of his father few months ago, decreased sleep and feeling tired, decreased appetite and lost about 5 pounds in 1 week. Had suicidal ideations with plan to cut his wrist. History of one previous suicidal attempt 5 years ago by overdose and was admitted at [facility]. Denied any homicidal ideations. Also reported crying , hopeless and helpless at times guilty about his failures. Also history of visual hallucinations last had few months ago. History of more than 10 inpatient psychiatric hospitalization. Denied any manic or anxiety symptoms. Heroin: Started using heroin about 3 years ago, increased gradually. Currently he was using more than 20 bags daily, IV. His last use was yesterday 15 bags. History of 5 previous detox and 3 rehabs at [facility]. Smokes half pack of cigarettes daily and is requesting for nicotine patch. Patient was born in [place] and has high school graduation from [place]. He moved to [facility] more than 30 years ago by himself. He works as a dobbs. He is single and has 4 children from 2 females. His children's are 28 years, 24 years, 18 and 17 years old. 18 and 17 years old live with their maternal grandmother. Patient lives alone. His height is 6 feet and weight is 210 pounds. Patient will speak to social work instructor to find a place for follow-up care after discharge from the hospital. Consultations:: List each consultation separately and include: 1. Reason for request. 2. Findings. 3. Follow-up Summary of Hospital Course include:: 1. Description of specific treatment plan utilized for patients during their course of treatmen. 2. Summarize the time- course for resolution of acute symptoms and/or regressed behaviors. 3. Describe issues identified and worked on during hospitalization. 4. Describe medication utilized. 5. Describe medical problems identified and treated. 6. Reassessment of suicide risk - Final Diagnosis (DSM 5) Condition upon Discharge: STABLE DSM 5: Major depressive disorder recurrent severe without psychotic features. Opiate use disorder severe Disposition: HOME/ ROUTINE Prescriptions/Medication Reconciliation: FLUoxetine [Prozac] 20 mg PO DAILY #30 cap Gabapentin [Neurontin] 400 mg PO BID #60 cap traZODone [Desyrel] 100 mg PO HS PRN #30 tab PRN Reason: Insomnia
[2018-05-04 10:25] VITALS: BP 124/84; PULSE 70; RESP 18; TEMP 97.4
== END 2018-05-04 12:01 | disposition home or self-care (01) | DRG 744 ==
LOC: C.ER 18:00 → C.5E 22:01
PROVIDERS: ADMIT Psychiatry & Neurology Psychiatry; ATTEND Psychiatry & Neurology Psychiatry
PROC: HZ52ZZZ Individual Psychotherapy for Substance Abuse Treatment, Cognitive-Behavioral (ICD-10-PCS; principal; 2018-04-28)
PROC: HZ2ZZZZ Detoxification Services for Substance Abuse Treatment (ICD-10-PCS; 2018-04-28)
PROC: HZ59ZZZ Individual Psychotherapy for Substance Abuse Treatment, Supportive (ICD-10-PCS; 2018-04-28)
PROC: HZ56ZZZ Individual Psychotherapy for Substance Abuse Treatment, Psychoeducation (ICD-10-PCS; 2018-04-28)
PROC: HZ42ZZZ Group Counseling for Substance Abuse Treatment, Cognitive-Behavioral (ICD-10-PCS; 2018-04-28)
PROC: HZ46ZZZ Group Counseling for Substance Abuse Treatment, Psychoeducation (ICD-10-PCS; 2018-04-28)
PROC: GZHZZZZ Group Psychotherapy (ICD-10-PCS; 2018-04-28)
PROC: GZ58ZZZ Individual Psychotherapy, Cognitive-Behavioral (ICD-10-PCS; 2018-04-28)
PROC: GZ56ZZZ Individual Psychotherapy, Supportive (ICD-10-PCS; 2018-04-28)
DX: F11.23 Opioid dependence with withdrawal (principal); F33.2 Major depressive disorder, recurrent severe without psychotic features; F17.210 Nicotine dependence, cigarettes, uncomplicated; R45.851 Suicidal ideations; Z62.810 Personal history of physical and sexual abuse in childhood; Z91.19 Patient's noncompliance with other medical treatment and regimen; Z91.5 Personal history of self-harm

== ENCOUNTER 2018-05-14 17:24 | Inpatient (IN) | payer MEDICAID ==
[2018-05-14 18:10] LABS: BASO % 0.3 % (0.0-2.0); EOS % 0.4 % (0.0-4.0); HEMOGLOBIN 15.5 g/dL (12.0-18.0); LYMPH % 22.2 % (20.0-40.0); MEAN CELL VOLUME 93.3 fL (80.0-94.0); MEAN CORPUSCULAR HEMOGLOBIN 32.6 pg (27.0-31.0); MEAN PLATELET VOLUME 10.5 fL (7.2-11.7); MONO # 0.3 K/uL (0.0-0.8); MONO % 3.8 % (0.0-10.0); NEUT # 6.5 K/uL (1.8-7.0); NEUT % 73.3 % (50.0-75.0); NRBC % 0.5 % (0.0-2.0); RBC 4.76 Mil/uL (4.40-5.90); RED CELL DISTRIBUTION WIDTH 13.5 % (11.5-14.5); WHITE BLOOD COUNT 8.9 K/uL (4.8-10.8)
[2018-05-14 18:12] LABS: SQUAMOUS EPITHIAL < 1 /hpf (0-5); URINE BACTERIA RARE (<OCC); URINE BILIRUBIN NEGATIVE (NEGATIVE); URINE BLOOD NEGATIVE (NEGATIVE); URINE CLARITY Clear (Clear); URINE COLOR Amber (YELLOW); URINE GLUCOSE (UA) NORMAL (Normal); URINE LEUKOCYTE ESTERASE NEG Leu/uL (Negative); URINE PROTEIN 1+ mg/dL (NEGATIVE); URINE UROBILINOGEN NORMAL mg/dL (0.2-1.0)
[2018-05-14 18:32] LABS: ACETAMINOPHEN < 10.0 ug/mL (10.0-30.0); SALICYLATE < 1.0 [, mg/dL 1]
[2018-05-14 18:37] LABS: ALBUMIN 4.5 g/dL (3.5-5.0); ALT/SGPT 99 U/L (21-72); AST/SGOT 49 U/L (17-59); BLOOD UREA NITROGEN 15 mg/dL (9-20); CALCIUM 9.9 mg/dl (8.6-10.4); GFR AFRICAN-AMERICAN > 60; GFR NON-AFRICAN AMERICAN > 60
[2018-05-14 18:58] LABS: BARBITURATES, UR NEGATIVE (NEGATIVE); PHENCYCLIDINE, UR NEGATIVE (NEGATIVE)
[2018-05-14 19:14] LABS: BENZODIAZEPINES, UR POSITIVE (NEGATIVE); OPIATES, UR POSITIVE (NEGATIVE)
--- NOTE | 2018-05-14 20:47 | C.PDOC ---
Time Seen by Provider: 05/14/18 17:37 Chief Complaint (Nursing): Psychiatric Evaluation History Per: Patient Onset/Duration Of Symptoms: Days Current Symptoms Are (Timing): Still Present Suicide/Self Injury Attempted (Context): None Modifying Factor(s): Narcotics Severity: Moderate Associated Symptoms: Depression, Suicidal Thoughts Additional History Per: Prior Records Past Medical History Reviewed: Historical Data, Nursing Documentation, Vital Signs Vital Signs: Last Vital Signs Temp 97.7 F 05/14/18 17:28 Pulse 78 05/14/18 17:28 Resp 18 05/14/18 17:28 BP 130/88 05/14/18 17:28 Pulse Ox 100 05/14/18 17:28 - Medical History PMH: Anxiety, Depression - [facility] Procedures DETOXIFICATION SERVICES FOR SUBSTANCE ABUSE TREATMENT (04/28/18) GROUP CORPORATE QUALITY ENGINEER FOR SUBSTANCE ABUSE TREATMENT, PSYCHOEDUCATION (04/28/18) GROUP CORPORATE QUALITY ENGINEER FOR SUBSTANCE ABUSE, COGNITIVE BEHAVIORAL (04/28/18) GROUP PSYCHOTHERAPY (04/28/18) INDIV PSYCHOTHERAPY FOR SUBSTANCE ABUSE TREATMENT, SUPPORT (04/28/18) INDIV PSYCHOTHERAPY FOR SUBSTANCE ABUSE, COGNITIV BEHAVIORAL (04/28/18) INDIV PSYCHOTHERAPY FOR SUBSTANCE ABUSE, PSYCHOEDUCATION (04/28/18) INDIVIDUAL PSYCHOTHERAPY, COGNITIVE-BEHAVIORAL (04/28/18) INDIVIDUAL PSYCHOTHERAPY, SUPPORTIVE (04/28/18) MEDICATION MANAGEMENT (02/19/18) Family History: States: Unknown Family Hx - Social History Hx Tobacco Use: Yes Hx Alcohol Use: No Hx Substance Use: Yes (IVDU Heroin) - Immunization History Hx Tetanus Toxoid Vaccination: No Hx Influenza Vaccination: No Hx Pneumococcal Vaccination: No Review Of Systems Except As Marked, All Systems Reviewed And Found Negative. Constitutional: Negative for: Fever Cardiovascular: Negative for: Chest Pain Respiratory: Negative for: Shortness of Breath Gastrointestinal: Negative for: Abdominal Pain Musculoskeletal: Negative for: Neck Pain Neurological: Negative for: Weakness, Seizures Physical Exam - Physical Exam Appears: Non-toxic, No Acute Distress, Other (Tearful affect) Skin: Normal Color, Warm, Dry, No Rash Head: Atraumatic, Normacephalic Eye(s): bilateral: PERRL, EOMI Neck: Normal ROM, Supple Cardiovascular: Rhythm Regular Respiratory: Normal Breath Sounds, No Accessory Muscle Use Gastrointestinal/Abdominal: Soft, No Tenderness Back: No CVA Tenderness Extremity: Normal ROM Neurological/Psych: Oriented x3, Normal Motor, Normal Sensation ED Course And Treatment - Laboratory Results Result Diagrams: 05/14/18 18:07 05/14/18 18:07 O2 Sat by Pulse Oximetry: 100 Pulse Ox Interpretation: Normal Progress Note: Pt is medically stable for psychiatric admission. Disposition Counseled Patient/Family Regarding: Studies Performed, Diagnosis, Smoking Cessation - Disposition Disposition: HOSPITALIZED Disposition Time: 20:47 Condition: STABLE - Clinical Impression Clinical Impression: Depression, Drug abuse Decision To Admit - Pt Status Changed To: Hospital Disposition Of: Inpatient - Admit Certification Admit to Inpatient:: After my assessment, the patient will require hospitalization for at least two midnights. This is because of the severity of symptoms shown, intensity of services needed, and/or the medical risk in this patient being treated as an outpatient. - InPatient: Physician Admission Certification: I certify that this patient requires 2 or more midnights of care for the following reason:: Psych. - . Bed Request Type: Psychiatry Admitting Physician: Brenda Starr Patient Diagnosis: Depression, Drug abuse
[2018-05-14] MEDS ORDERED: Aluminum Hydroxide/Magnesium Hydroxide Susp (30 mL) PO PRN (22:03)
--- NOTE | 2018-05-14 22:13 | PCM.BM ---
<Kristel Calle - Last Filed: 05/14/18 22:00> Treatment Plan Problems - Problems identified on initial assessmt Depression Date Initiated: 05/14/18 Time Initiated: 22:01 Assessment reference: NA Status: Active Substance Abuse Date Initiated: 05/14/18 Time Initiated: 22:01 Assessment reference: NA Status: Active Treatment assets and liabiliti Patient Assests: cooperative, self-reliant, ADL independent, physically healthy , negotiates basic needs, cognitively intact Patient Liabilities: substance abuse (Opiates) - Milieu Protocol Maintain good personal hygiene: daily Encourage regular showers, daily Remind patient to perform daily oral care, daily Assist patient to perform ADL's (Self) Conduct patient checks and document Observation sheet: Q15 minutes (Safety) Maintain personal safety: every shift Educate patient to report safety concerns to staff, every shift Monitor environment for contraband/sharps Medication safety: Monitor for expected outcome, potential side effects: every shift, Assess barriers to learning: every shift, Assess readiness for medication education: every shift <Brenda Starr - Last Filed: 05/15/18 14:11> - Diagnosis (1) Major depressive disorder, recurrent severe without psychotic features Status: Acute Interventions: 05/15/18 14:11 * Assess/adjust medications daily and /or as needed * See patient on an individual basis 7x/week to assess symptoms of depression * Monitor for side effects & effectiveness of medications * (2) Opioid use disorder, severe, dependence Status: Acute Interventions: 05/15/18 14:11 * Assess 7x/week regarding severity of withdrawal * Educate regarding risks, benefits, side effects and alternatives of medications * Use Motivational Interviewing for abstinence * Use CBT for relapse prevention * Medication management for withdrawal symptoms * Encourage medication assisted treatment * <Marleny Reilly - Last Filed: 05/17/18 14:37> Family Contact Family involvement: Family/SO is involved Family contact: Patient declines to allow family contact at present - Goals for Treatment Patient goals for treatment: "I want to go to rehab." Discharge/Continuing Care - Education Needs Education Needs: Patient Medication, Patient Coping Skills, Patient Placement options, Patient Community resources - Discharge Discharge Criteria: Tolerates medication w/o severe side effects, No longer exhibiting s/s of withdrawal, Reduction of target symptoms Discharge to:: Substance Abuse Rehab - Treatment Team Participation Discussed with Family/SO: No Was Patient/Family/SO present at Treatment Team Meeting: Yes
--- NOTE | 2018-05-15 13:41 | PCM.PSYCH ---
Initial Psychiatric Evaluation - Initial Psychiatric Evaluation Type of Admission: Voluntary Legal Status: Capacity Chief Complaint (in patient's own words): "Depressed" History of Present Illness and Precipitating Events: The patient is seen, chart reviewed and case discussed. This is a 43-year-old male, single with 5 children, from age 18-28. 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 The patient says he is here for depression and drugs. He says he has been depressed since age 19 but it has gotten worse over time and the last 7 days he was thinking about suicide. He even claims he went to a bridge but he did not jump. He has some paranoia but no hallucinations. He also uses heroin 10 bags IV for the past 20 years. Longest sobriety was 7 years. He has been to detox 5 times and rehabilitation twice; [facility] and [facility]. He uses cocaine IV for 20 years denies all other drugs except for cigarettes which is half pack per day and Xanax 4 mg a week. Past psych history: No suicide attempts but to be admissions with depression Medical history: Hepatitis C Family psych history: Mother and psych issues and brother and uncle had alcohol and drug use. Current Medications: Active Medications Generic Name Dose Route Start Last Admin Trade Name Freq PRN Reason Stop Dose Admin Acetaminophen 650 mg 05/14/18 22:01 Tylenol 325mg Tab PO Q6H PRN Pain, moderate (4-7) Al Hydrox/Mg Hydrox/Simethicone 30 ml 05/14/18 22:03 Maalox 30 Ml PO TID PRN Indigestion / Heartburn Chlordiazepoxide 25 mg 05/14/18 22:20 Librium PO Q8 PRN benzo wdw; BP>150/100 or P>100 Clonidine HCl 0.1 mg 05/14/18 22:03 Catapres PO Q8 PRN COWS Score More or Equal to 5 Fluoxetine HCl 20 mg 05/15/18 10:00 05/15/18 09:14 Prozac PO 20 mg DAILY TIBURCIO Administration Gabapentin 400 mg 05/15/18 10:00 05/15/18 09:14 Neurontin PO 400 mg BID TIBURCIO Administration Haloperidol 5 mg 05/14/18 22:01 Haldol PO Q4H PRN Agitation Hydroxyzine HCl 50 mg 05/14/18 22:52 Atarax PO Q6H PRN Anxiety Loperamide HCl 2 mg 05/14/18 22:03 Imodium PO Q8 PRN Diarrhea Methadone HCl 20 mg 05/15/18 10:00 05/15/18 09:14 Methadone PO 05/20/18 09:59 20 mg Q24H TIBURCIO Administration Taper Nicotine 1 patch 05/15/18 13:00 Nicoderm Cq TD DAILY TIBURCIO Ondansetron HCl 4 mg 05/14/18 22:03 Zofran Tab PO Q8 PRN Nausea/Vomiting Pneumococcal Polyvalent Vaccine 0.5 ml 05/18/18 10:00 Pneumovax 23 Vaccine IM 05/18/18 10:01 .ONCE ONE Quetiapine Fumarate 100 mg 05/14/18 22:30 05/14/18 22:47 Seroquel PO 100 mg HS TIBURCIO Administration Trazodone HCl 100 mg 05/14/18 22:01 Desyrel PO HS PRN Insomnia Past Psychiatric History - Past Psychiatric History Previous Treatment History: Inpatient Pertinent Medical Hx (Current Medical&Sleep Prob, Allergies): Allergies Allergy/AdvReac Type Severity Reaction Status Date / Time No Known Allergies Allergy Verified 04/28/18 18:20 FLUoxetine [Prozac] 20 mg PO DAILY #30 cap 05/04/18 Gabapentin [Neurontin] 400 mg PO BID #60 cap 05/04/18 traZODone [Desyrel] 100 mg PO HS PRN #30 tab 05/04/18 Review of Systems - Neurological Neurological: UNREMARKABLE - Psychiatric Psychiatric: Abnormal Sleep Pattern, Anhedonia, Anxiety, Change in Appetite, Depression, Irritability, Mood Swings, Paranoia, Suicidal Ideation (no plans). absent: Hallucinations, Homicidal Ideation Mental Status Examination - Personal Presentation Personal Presentation: Looks stated age - Affect Affect: Constricted - Motor Activity Motor Activity: Calm - Reliability in Providing Information Reliability in Providing Information: Good - Speech Speech: Organized - Mood Mood: Depressed, Anxious - Formal Thought Process Formal Thought Process: No Impairment - Cognitive Functions Orientation: Person, Place, Situation, Time Sensorium: Alert Attention/Concentration: Attentive Estimate of Intelligence: Average Judgement: Intact, as evidence by: Insight regarding need for hospitalization Memory: Recent intact, as evidence by: Ability to recall events of the day, Remote intact, as evidenced by: Abilit to recall sig. life events - Risk Risk: Withdrawal, Diminished functioning - Strength & Assets Inventory Strength & Assets Inventory: Family support, Cooperative - Limitations Limitations: Other DSM 5 DX - DSM 5 DSM 5 Diagnosis: Venkat. depressive disorder, recurrent, severe, without psychosis Opioid withdrawal Opioid use disorder, severe Cocaine use disorder, severe Tobacco use disorder, monitor Hepatitis C - Recommended/Plan of Treatment Treatment Recommendations and Plan of Treatment: Prozac for depression Taper with methadone Gabapentin for augmentation As needed medications All risks, benefits and alternatives of the meds discussed, and the pt agreed and understood. Attend groups and activities Supportive therapy and psychoeducation PR for abstinence CBT for relapse prevention Encourage MAT Refer to rehab or IOP, and self-help groups Smoking cessation with PR Nicotine patch if needed 34 min Projected ELOS: 5 days Prognosis: good w treatment - Smoking Cessation Smoking Cessation Initiated: Yes
[2018-05-16 06:44] VITALS: O2SAT 99
--- NOTE | 2018-05-17 00:10 | PCM.PYCHPN ---
Psychiatric Progress Note - Psychiatric Progress Note Patient seen today, length of contact: 16 min Patient Chief Complaint: "till withdrawing" Problems Identified/Issues Discussed: The pt is seen, chart reviewed, case discussed with staff. The pt is compliant with medications and reports no side-effects. Symptoms are improving but needs more time to stabilize. Pt attends groups and activities. Support given, psycho-education provided. After care discussed. Medication Change: Yes (meds change daily) Medical Record Reviewed: Yes Mental Status Examination - Cognitive Function Orientation: Person, Place, Situation, Time Memory: Intact Attention: WNL Concentration: WNL Association: WNL Fund of Knowledge: WN - Mood Mood: Depressed, Anxious - Affect Affect: Constricted - Speech Speech: Appropriate - Formal Thought Process Formal Thought Process: No Impairment - Suicidal Ideation Suicidal Ideation: No - Homicidal Ideation Homicidal Ideation: No Goal/Treatment Plan - Goal/Treatment Plan Need for Continued Stay: Severe depression anxiety, Discharge may exacerbated symptoms, Severe functional impairment Progress Toward Problem(s) and Goals/Treatment Plan: Prozac for depression Taper with methadone, got an extra dose Gabapentin for augmentation As needed medications All risks, benefits and alternatives of the meds discussed, and the pt agreed and understood. Attend groups and activities Supportive therapy and psychoeducation MO for abstinence CBT for relapse prevention Encourage MAT Refer to rehab or IOP, and self-help groups Smoking cessation with MO Nicotine patch if needed Estimated Date of D/C: 05/19/18 - Smoking Cessation Smoking Cessation Initiated: Yes
--- NOTE | 2018-05-17 12:40 | PCM.PYCHPN ---
Psychiatric Progress Note - Psychiatric Progress Note Patient seen today, length of contact: 17 min Patient Chief Complaint: "I must go to a rehab" Problems Identified/Issues Discussed: Mr. Jameel Oro is seen, chart reviewed, case discussed with staff. Pt said he was desperate to get better because his girlfriend just became Support and psychoeducation given. Pt is compliant with medication Pt reports pain in stomach and a foot fungus, otherwise he is improving After care discussed and pt said he was anxious to get into [facility] or any other related program to get his life in order Medication Change: Yes (meds change daily) Medical Record Reviewed: Yes Mental Status Examination - Cognitive Function Orientation: Person, Place, Situation, Time Memory: Intact Attention: WNL Concentration: WNL Association: WNL Fund of Knowledge: WNL - Mood Mood: Depressed, Anxious - Affect Affect: Constricted - Speech Speech: Appropriate - Formal Thought Process Formal Thought Process: No Impairment - Suicidal Ideation Suicidal Ideation: No - Homicidal Ideation Homicidal Ideation: No Goal/Treatment Plan - Goal/Treatment Plan Need for Continued Stay: Severe depression anxiety, Discharge may exacerbated symptoms, Severe functional impairment Progress Toward Problem(s) and Goals/Treatment Plan: Prozac for depression Taper with methadone, got an extra dose Gabapentin for augmentation As needed medications All risks, benefits and alternatives of the meds discussed, and the pt agreed and understood. Attend groups and activities Supportive therapy and psychoeducation CT for abstinence CBT for relapse prevention Encourage MAT Refer to rehab or IOP, and self-help groups Smoking cessation with CT Nicotine patch if needed Estimated Date of D/C: 05/19/18
[2018-05-17] MEDS: Clotrimazole 1% Cream 15 GM TUBE TOP SCH ×2 (13:42→17:23)
[2018-05-18] MEDS: Clotrimazole 1% Cream 15 GM TUBE TOP SCH ×3 (09:27→17:45)
[2018-05-18] MEDS ORDERED: Pneumococcal 23-Valent Vaccine IM ONE (10:00)
--- NOTE | 2018-05-18 11:16 | PCM.PYCHPN ---
Psychiatric Progress Note - Psychiatric Progress Note Patient seen today, length of contact: 16 min Patient Chief Complaint: "I am anxious" Problems Identified/Issues Discussed: The pt is seen, chart reviewed, case discussed with staff. The pt is compliant with medications and reports no side-effects. Symptoms are improving but needs more time to stabilize. Pt attends groups and activities. Support given, psycho-education provided. After care discussed. He will attend [facility] in [place] Medication Change: Yes (meds change daily) Medical Record Reviewed: Yes Mental Status Examination - Cognitive Function Orientation: Person, Place, Situation, Time Memory: Intact Attention: WNL Concentration: WNL Association: [facility] Fund of Knowledge: WN - Mood Mood: Depressed, Anxious - Affect Affect: Constricted - Speech Speech: Appropriate - Formal Thought Process Formal Thought Process: No Impairment - Suicidal Ideation Suicidal Ideation: No - Homicidal Ideation Homicidal Ideation: No Goal/Treatment Plan - Goal/Treatment Plan Need for Continued Stay: Severe depression anxiety, Discharge may exacerbated symptoms, Severe functional impairment Progress Toward Problem(s) and Goals/Treatment Plan: Prozac for depression Taper with methadone, got an extra dose Gabapentin for augmentation As needed medications All risks, benefits and alternatives of the meds discussed, and the pt agreed and understood. Attend groups and activities Supportive therapy and psychoeducation DC for abstinence CBT for relapse prevention Encourage MAT Refer to rehab or IOP, and self-help groups Smoking cessation with DC Nicotine patch if needed Estimated Date of D/C: 05/20/18 If changed, why: Accepted by [facility] [employer] for tomorrow - will relapse if he leaves now
[2018-05-19] MEDS: Clotrimazole 1% Cream 15 GM TUBE TOP SCH ×3 (09:04→17:54)
[2018-05-19 15:41] VITALS: PULSE 73
[2018-05-20 06:54] VITALS: BP 122/86; RESP 20; TEMP 98.8
[2018-05-20] MEDS: Clotrimazole 1% Cream 15 GM TUBE TOP SCH (10:18)
--- NOTE | 2018-05-20 10:24 | PCM.PYCHDC ---
Mental Status Examination - Mental Status Examination Orientation: Person Discharge Summary - Discharge Note Consultations:: List each consultation separately and include: 1. Reason for request. 2. Findings. 3. Follow-up Summary of Hospital Course include:: 1. Description of specific treatment plan utilized for patients during their course of treatmen. 2. Summarize the time- course for resolution of acute symptoms and/or regressed behaviors. 3. Describe issues identified and worked on during hospitalization. 4. Describe medication utilized. 5. Describe medical problems identified and treated. 6. Reassessment of suicide risk Summary of Hospital Course: The patient is seen, chart reviewed and case discussed. This is a 43-year-old male, single with 5 children, from age [age]. 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 The patient says he is here for depression and drugs. He says he has been depressed since age 19 but it has gotten worse over time and the last 7 days he was thinking about suicide. He even claims he went to a bridge but he did not jump. He has some paranoia but no hallucinations. He also uses heroin 10 bags IV for the past 20 years. Longest sobriety was 7 years. He has been to detox 5 times and rehabilitation twice; [facility] and [facility]. He uses cocaine IV for 20 years denies all other drugs except for cigarettes which is half pack per day and Xanax 4 mg a week. Past psych history: No suicide attempts but to be admissions with depression Medical history: Hepatitis C Family psych history: Mother and psych issues and brother and uncle had alcohol and drug use. He will go to [facility] today. - Diagnosis (1) Major depressive disorder, recurrent severe without psychotic features Current Visit: No Status: Acute (2) Opioid use disorder, severe, dependence Current Visit: No Status: Acute - Final Diagnosis (DSM 5) Condition upon Discharge: STABLE Disposition: HOME/ ROUTINE Follow-up Treatment Plan: Prozac for depression Taper with methadone, got an extra dose Gabapentin for augmentation As needed medications All risks, benefits and alternatives of the meds discussed, and the pt agreed and understood. Attend groups and activities Supportive therapy and psychoeducation CO for abstinence CBT for relapse prevention Encourage MAT Refer to rehab or IOP, and self-help groups Smoking cessation with CO Nicotine patch if needed Prescriptions/Medication Reconciliation: FLUoxetine [Prozac] 20 mg PO DAILY #30 cap Gabapentin [Neurontin] 400 mg PO BID #60 cap traZODone [Desyrel] 100 mg PO HS PRN #30 tab PRN Reason: Insomnia
== END 2018-05-20 11:55 | disposition home or self-care (01) | DRG 430 ==
LOC: C.ER 17:24 → C.5E 20:48
PROVIDERS: ADMIT Psychiatry & Neurology Psychiatry; ATTEND Psychiatry & Neurology Psychiatry
PROC: GZ3ZZZZ Medication Management (ICD-10-PCS; principal; 2018-05-14)
PROC: HZ2ZZZZ Detoxification Services for Substance Abuse Treatment (ICD-10-PCS; 2018-05-14)
PROC: HZ59ZZZ Individual Psychotherapy for Substance Abuse Treatment, Supportive (ICD-10-PCS; 2018-05-14)
PROC: HZ80ZZZ Medication Management for Substance Abuse Treatment, Nicotine Replacement (ICD-10-PCS; 2018-05-14)
PROC: GZHZZZZ Group Psychotherapy (ICD-10-PCS; 2018-05-14)
PROC: GZ56ZZZ Individual Psychotherapy, Supportive (ICD-10-PCS; 2018-05-14)
PROC: HZ46ZZZ Group Counseling for Substance Abuse Treatment, Psychoeducation (ICD-10-PCS; 2018-05-14)
DX: F33.2 Major depressive disorder, recurrent severe without psychotic features (principal); F11.23 Opioid dependence with withdrawal; R45.851 Suicidal ideations; F14.20 Cocaine dependence, uncomplicated; F22 Delusional disorders; F17.210 Nicotine dependence, cigarettes, uncomplicated; B19.20 Unspecified viral hepatitis C without hepatic coma

== ENCOUNTER 2018-09-09 18:31 | Inpatient (IN) | payer MEDICAID, OTHER ==
--- NOTE | 2018-09-09 19:42 | C.PDOC ---
History Of Present Illness 43 year old male presents to the ED for psychiatric evaluation. Patient states he has been feeling depressed and reports having suicidal thoughts. He has been prescribed medication, but states he last took the dose around 2 weeks ago. Patient admits to using heroin this morning and drinking alcohol around three days ago. Patient denies cocaine, PCP, or marijuana use. Time Seen by Provider: 09/09/18 19:09 Chief Complaint (Nursing): Psychiatric Evaluation History Per: Patient History/Exam Limitations: no limitations Current Symptoms Are (Timing): Still Present Suicide/Self Injury Attempted (Context): None Modifying Factor(s): Alcohol, Other (heroin ) Associated Symptoms: Depression, Suicidal Thoughts Involuntary Hold By: None Recent travel outside of the [place]: No Additional History Per: Patient Past Medical History Reviewed: Historical Data, Nursing Documentation, Vital Signs Vital Signs: Last Vital Signs Temp 98.2 F 09/09/18 19:08 Pulse 75 09/09/18 19:08 Resp 20 09/09/18 19:08 BP 129/86 09/09/18 19:08 Pulse Ox 97 09/09/18 19:08 - Medical History PMH: Anxiety, Depression, Hepatitis (C) Denies: Diabetes (Patient denied), HIV (Patient denied), HTN (Patient denied), Chronic Kidney Disease, Seizures (Patient denied), Sexually Transmitted Disease (Patient denied) Surgical History: No Surg Hx - [facility] DETOXIFICATION SERVICES FOR SUBSTANCE ABUSE TREATMENT (07/11/18) GROUP MACHINE SHOP SPECIALIST FOR SUBSTANCE ABUSE TREATMENT, PSYCHOEDUCATION (07/11/18) GROUP MACHINE SHOP SPECIALIST FOR SUBSTANCE ABUSE, COGNITIVE BEHAVIORAL (07/11/18) GROUP PSYCHOTHERAPY (07/11/18) INDIV PSYCHOTHERAPY FOR SUBSTANCE ABUSE TREATMENT, SUPPORT (07/11/18) INDIV PSYCHOTHERAPY FOR SUBSTANCE ABUSE, COGNITIV BEHAVIORAL (07/11/18) INDIV PSYCHOTHERAPY FOR SUBSTANCE ABUSE, PSYCHOEDUCATION (07/11/18) INDIVIDUAL PSYCHOTHERAPY, COGNITIVE-BEHAVIORAL (07/11/18) INDIVIDUAL PSYCHOTHERAPY, SUPPORTIVE (07/11/18) MEDICATION MANAGEMENT (05/14/18) MEDS MGMT FOR SUBSTANCE ABUSE TREATMENT, NICOTINE REPLACE (05/14/18) Family History: States: Unknown Family Hx - Social History Hx Tobacco Use: Yes Hx Alcohol Use: Yes Hx Substance Use: Yes - Immunization History Hx Tetanus Toxoid Vaccination: No Hx Influenza Vaccination: No Hx Pneumococcal Vaccination: No Review Of Systems Psych: Positive for: Depression, Suicidal ideation Physical Exam - Physical Exam Appears: Non-toxic, No Acute Distress Skin: Normal Color, Warm, Dry Head: Atraumatic, Normacephalic Oral Mucosa: Moist Chest: Symmetrical Respiratory: No Accessory Muscle Use Extremity: Normal ROM Neurological/Psych: Normal Speech, Normal Cognition ED Course And Treatment - Laboratory Results Result Diagrams: 09/09/18 19:49 09/09/18 19:49 O2 Sat by Pulse Oximetry: 97 (on RA) Pulse Ox Interpretation: Normal Progress Note: Bloodwork and urinalysis ordered and reviewed. Reevaluation Time: 20:26 Reassessment Condition: Unchanged (MED CLEAR FOR CRISIS. CRISIS NOTIFIED) Disposition Counseled Patient/Family Regarding: Studies Performed, Diagnosis - Disposition Disposition: HOSPITALIZED Disposition Time: 21:32 Condition: STABLE Forms: [facility] (Surinamese) - Clinical Impression Clinical Impression: Depression, Opiate abuse, continuous - Scribe Statement The provider has reviewed the documentation as recorded by the Scribe (Yaritza Sanchez) Provider Attestation: All medical record entries made by the Scribe were at my direction and personally dictated by me. I have reviewed the chart and agree that the record accurately reflects my personal performance of the history, physical exam, medical decision making, and the department course for this patient. I have also personally directed, reviewed, and agree with the discharge instructions and disposition.
[2018-09-09 19:56] LABS: BASO % 0.3 % (0.0-2.0); EOS # 0.1 K/uL (0.0-0.7); HEMOGLOBIN 14.1 g/dL (12.0-18.0); LYMPH # 1.1 K/uL (1.0-4.3); LYMPH % 25.9 % (20.0-40.0); MEAN CELL VOLUME 93.6 fL (80.0-94.0); MEAN CORPUSCULAR HEMOGLOBIN 32.5 pg (27.0-31.0); MEAN CORPUSCULAR HGB CONC 34.8 g/dL (33.0-37.0); MEAN PLATELET VOLUME 9.3 fL (7.2-11.7); MONO # 0.3 K/uL (0.0-0.8); MONO % 6.1 % (0.0-10.0); NEUT # 2.9 K/uL (1.8-7.0); NEUT % 65.7 % (50.0-75.0); NRBC % 0.1 % (0.0-2.0); RBC 4.32 Mil/uL (4.40-5.90); RED CELL DISTRIBUTION WIDTH 13.3 % (11.5-14.5); WHITE BLOOD COUNT 4.4 K/uL (4.8-10.8)
[2018-09-09 20:00] LABS: URINE BACTERIA RARE (<OCC); URINE BILIRUBIN NEGATIVE (NEGATIVE); URINE BLOOD NEGATIVE (NEGATIVE); URINE CLARITY Clear (Clear); URINE COLOR Amber (YELLOW); URINE GLUCOSE (UA) NORMAL (Normal); URINE LEUKOCYTE ESTERASE NEG Leu/uL (Negative); URINE PROTEIN 1+ mg/dL (NEGATIVE)
[2018-09-09 20:03] VITALS: O2SAT 97
[2018-09-09 20:08] LABS: ALB/GLOB RATIO 0.9 (1.0-2.1); ALBUMIN 4.3 g/dL (3.5-5.0); ALT/SGPT 133 U/L (21-72); AST/SGOT 85 U/L (17-59); BLOOD UREA NITROGEN 14 mg/dL (9-20); CALCIUM 9.1 mg/dl (8.6-10.4); GFR NON-AFRICAN AMERICAN > 60
[2018-09-09 20:12] LABS: BARBITURATES, UR NEGATIVE (NEGATIVE); BENZODIAZEPINES, UR NEGATIVE (NEGATIVE); PHENCYCLIDINE, UR NEGATIVE (NEGATIVE)
[2018-09-09 20:20] LABS: OPIATES, UR POSITIVE (NEGATIVE)
--- NOTE | 2018-09-09 22:57 | PCM.BM ---
<Wild Holliday - Last Filed: 09/09/18 22:55> Treatment Plan Problems - Problems identified on initial assessmt Substance abuse Date Initiated: 09/09/18 Time Initiated: 22:55 Assessment reference: NA Status: Active Depression Date Initiated: 09/09/18 Time Initiated: 22:56 Assessment reference: NA Status: Active Treatment assets and liabiliti Patient Assests: cooperative, self-reliant, ADL independent, physically healthy, negotiates basic needs, cognitively intact Patient Liabilities: live alone (lives alone), financial problems, substance abuse (Heroin, Alcohol) - Milieu Protocol Maintain good personal hygiene: daily Encourage regular showers, daily Remind patient to perform daily oral care, every shift Assist patient to perform ADL's Conduct patient checks and document Observation sheet: Q15 minutes (For safety) Maintain personal safety: every shift Educate patient to report safety concerns to staff, every shift Monitor environment for contraband/sharps Medication safety: Monitor for expected outcome, potential side effects: every shift, Assess barriers to learning: every shift, Assess readiness for medication education: every shift <Scarlett Marie - Last Filed: 09/10/18 14:22> Family Contact Family involvement: Patient does not wish Family/SO involvement Family contact: Patient declines to allow family contact at present - Goals for Treatment Patient goals for treatment: "I want to go to a methadone clinic." <Brenda Starr - Last Filed: 09/13/18 14:30> - Diagnosis (1) Depression Status: Acute Interventions: 09/13/18 14:30 * Assess/adjust medications daily and /or as needed * See patient on an individual basis 7x/week to assess symptoms of depression * Monitor for side effects & effectiveness of medications * (2) Opiate abuse, continuous Status: Acute Interventions: 09/13/18 14:30 * Assess 7x/week regarding severity of withdrawal * Educate regarding risks, benefits, side effects and alternatives of medications * Use Motivational Interviewing for abstinence * Use CBT for relapse prevention * Medication management for withdrawal symptoms * Encourage medication assisted treatment *
[2018-09-10] MEDS ORDERED: Aluminum Hydroxide/Magnesium Hydroxide Susp (30 mL) PO PRN (14:16)
--- NOTE | 2018-09-10 14:17 | PCM.PSYCH ---
Initial Psychiatric Evaluation - Initial Psychiatric Evaluation Type of Admission: Voluntary Legal Status: Capacity Chief Complaint (in patient's own words): "I'm very depressed" History of Present Illness and Precipitating Events: The patient is seen, chart reviewed and case discussed. This is a 43-year-old male, single with 5 children, from age [age]. 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 The patient says he is here for depression and drugs again. He says he has been depressed since age 19 but it has gotten worse over time and more recently he was thinking about suicide again. He has some paranoia but no hallucinations. He also uses heroin 5 bags IV for the past 20 years but it was higher before. Longest sobriety was 7 years. He has been to detox 5 times and rehabilitation twice; [facility] and [facility]. He uses cocaine IV for 20 years denies all other drugs except for cigarettes which is half pack per day and sometimes Xanax 4 mg a week. Pt recently went to [facility] rehab which is a prison program in [place] but quit after 1 month. He now wants to go to a methadone program in [place], where he lives. However, he had a fight with his GF and may not be able to return Past psych history: No suicide attempts but 3-4 admissions with depression Medical history: Hepatitis C Family psych history: Mother and psych issues and brother and uncle had alcohol and drug use. Current Medications: Active Medications Generic Name Dose Route Start Last Admin Trade Name Freq PRN Reason Stop Dose Admin Gabapentin 300 mg 09/10/18 18:00 Neurontin PO BID TIBURCIO Hydroxyzine HCl 25 mg 09/10/18 14:15 Atarax PO Q4H PRN Anxiety Ibuprofen 600 mg 09/10/18 14:15 Motrin Tab PO Q6H PRN Pain, moderate (4-7) Influenza Virus Vaccine 60 mcg 09/11/18 10:00 Fluzone Quad [id number] IM 09/11/18 10:01 .ONCE ONE Mirtazapine 15 mg 09/10/18 22:00 Remeron PO HS TIBURCIO Pneumococcal Polyvalent Vaccine 0.5 ml 09/12/18 10:00 Pneumovax 23 Vaccine IM 09/12/18 10:01 .ONCE ONE Trazodone HCl 100 mg 09/10/18 14:15 Desyrel PO HS PRN Insomnia Past Psychiatric History - Past Psychiatric History Previous Treatment History: Inpatient Pertinent Medical Hx (Current Medical&Sleep Prob, Allergies): Allergies Allergy/AdvReac Type Severity Reaction Status Date / Time No Known Allergies Allergy Verified 09/09/18 19:06 traZODone [Desyrel] 100 mg PO HS PRN #30 tab 05/19/18 Gabapentin [Neurontin] 400 mg PO TID 07/11/18 FLUoxetine [Prozac] 20 mg PO DAILY #30 cap 07/19/18 Gabapentin [Neurontin] 300 mg PO BID #60 cap 07/19/18 Review of Systems - Neurological Neurological: UNREMARKABLE - Psychiatric Psychiatric: Abnormal Sleep Pattern, Anxiety, Change in Appetite, Depression, Difficulty Concentrating, Irritability. absent: Hallucinations, Homicidal Ideation, Paranoia, Suicidal Ideation Mental Status Examination - Personal Presentation Personal Presentation: Looks stated age - Affect Affect: Constricted - Motor Activity Motor Activity: Calm - Reliability in Providing Information Reliability in Providing Information: Fair - Speech Speech: Organized - Mood Mood: Depressed, Anxious - Formal Thought Process Formal Thought Process: No Impairment - Cognitive Functions Orientation: Person, Place, Situation, Time Sensorium: Alert Attention/Concentration: Easily distracted Estimate of Intelligence: Average Judgement: Intact, as evidence by: Insight regarding need for hospitalization Memory: Recent intact, as evidence by: Ability to recall events of the day, Remote intact, as evidenced by: Abilit to recall sig. life events - Risk Risk: Withdrawal, Diminished functioning - Strength & Assets Inventory Strength & Assets Inventory: Cooperative - Limitations Limitations: Living alone DSM 5 DX - DSM 5 DSM 5 Diagnosis: Venkat. depressive disorder, recurrent, severe, without psychosis Opioid withdrawal Opioid use disorder, severe Cocaine use disorder, severe Tobacco use disorder, monitor Hepatitis C - Recommended/Plan of Treatment Treatment Recommendations and Plan of Treatment: Remeron for depression Taper with methadone Gabapentin for augmentation As needed medications All risks, benefits and alternatives of the meds discussed, and the pt agreed and understood. Attend groups and activities Supportive therapy and psychoeducation CO for abstinence CBT for relapse prevention Encourage MAT Refer to rehab or IOP, and self-help groups Smoking cessation with CO Nicotine patch if needed 34 min Projected ELOS: 5-6 days
[2018-09-10] MEDS: Clotrimazole 1% Cream(30 gm) TOP SCH (17:56)
[2018-09-11] MEDS: Clotrimazole 1% Cream(30 gm) TOP SCH ×2 (09:23→17:17)
[2018-09-11] MEDS ORDERED: Influenza Vaccine 60 MCG/0.5 ML SYR (3 yr & up) IM ONE (10:00)
--- NOTE | 2018-09-11 13:05 | PCM.PYCHPN ---
Psychiatric Progress Note - Psychiatric Progress Note Patient seen today, length of contact: 16 min Patient Chief Complaint: "Still depressed, hopeless" Problems Identified/Issues Discussed: The pt is seen, chart reviewed, case discussed with staff. The pt is compliant with medications and reports no side-effects. Symptoms are improving but needs more time to stabilize. Not suicidal today Pt attends groups and activities. Support given, psycho-education provided. After care discussed. Medication Change: Yes Medical Record Reviewed: Yes Mental Status Examination - Cognitive Function Orientation: Person, Place, Situation, Time Memory: Intact Attention: WNL Concentration: Poor Association: WNL Fund of Knowledge: WNL - Mood Mood: Depressed, Anxious - Affect Affect: Constricted - Speech Speech: Appropriate - Formal Thought Process Formal Thought Process: No Impairment - Suicidal Ideation Suicidal Ideation: No - Homicidal Ideation Homicidal Ideation: No Goal/Treatment Plan - Goal/Treatment Plan Need for Continued Stay: Discharge may exacerbated symptoms, Severe functional impairment Progress Toward Problem(s) and Goals/Treatment Plan: Continue medications Support and psychoeducation daily Attend groups and activities daily After care planning by MALACHI Refer to rehab or [facility] Estimated Date of D/C: 09/14/18
[2018-09-12] MEDS: Clotrimazole 1% Cream(30 gm) TOP SCH ×2 (09:25→17:20)
[2018-09-12] MEDS ORDERED: Pneumococcal 23-Valent Vaccine IM ONE (10:00)
--- NOTE | 2018-09-12 23:42 | PCM.PYCHPN ---
Psychiatric Progress Note - Psychiatric Progress Note Patient seen today, length of contact: 15 minutes Patient Chief Complaint: I'm feeling better. Problems Identified/Issues Discussed: Patient seen, chart reviewed, case discussed with the staff. Issues related to illness and treatment were discussed with the patient and staff. Reported compliant with treatment with no adverse effects. Tolerating treatment very well. Awake, alert and oriented x3. Calm and cooperative with good eye contact. Mood reported as depressed. Affect appropriate. Treatment discussed with the patient. Needs more time for stabilization. Aftercare discussed with the patient. Denied any delusions, auditory or visual hallucinations, suicidal ideations or homicidal ideations at the time of evaluation. Medical Problems: Hepatitis C Diagnostic Results: Reviewed DSM 5 Symptoms Update: Some improvement with treatment Medication Change: No Medical Record Reviewed: Yes Mental Status Examination - Cognitive Function Orientation: Person, Place, Situation, Time Memory: Intact Attention: WNL Concentration: WNL Association: WN Fund of Knowledge: [facility] Decription of patient's judgement and insights: Good - Mood Mood: Depressed (Much less than before) - Affect Affect: Other (Appropriate) - Speech Speech: Appropriate - Formal Thought Process Formal Thought Process: No Impairment Psychotic Thoughts and Behaviors: None - Suicidal Ideation Suicidal Ideation: No - Homicidal Ideation Homicidal Ideation: No Goal/Treatment Plan - Goal/Treatment Plan Need for Continued Stay: Remain at risks for inpatient hospitalization, Discharge may exacerbated symptoms, Severe functional impairment Progress Toward Problem(s) and Goals/Treatment Plan: Some improvement with treatment. Patient education. Supportive therapy. Patient will go to [facility] in [place] for follow-up care after discharge from the hospital. Estimated Date of D/C: 09/15/18 - Smoking Cessation Smoking Cessation Initiated: No
[2018-09-13] MEDS: Clotrimazole 1% Cream(30 gm) TOP SCH ×2 (09:09→16:59)
[2018-09-13 09:45] VITALS: RESP 20
--- NOTE | 2018-09-13 14:11 | PCM.PYCHPN ---
Psychiatric Progress Note - Psychiatric Progress Note Patient seen today, length of contact: 16 min Patient Chief Complaint: "Not good" Problems Identified/Issues Discussed: The pt is seen, chart reviewed, case discussed with staff. Support and psychoeducation given, CBT and OH used briefly No new symptoms reported, improving slowly and needs more time No SEs from medications, risks discussed. After care discussed He changes his mind a lot [facility] Medication Change: Yes (detox changes daily) Medical Record Reviewed: Yes Mental Status Examination - Cognitive Function Orientation: Person, Place, Situation, Time Memory: Intact Attention: WNL Concentration: Poor Association: WNL Fund of Knowledge: WNL - Mood Mood: Depressed, Anxious - Affect Affect: Constricted - Speech Speech: Appropriate - Formal Thought Process Formal Thought Process: No Impairment - Suicidal Ideation Suicidal Ideation: No - Homicidal Ideation Homicidal Ideation: No Goal/Treatment Plan - Goal/Treatment Plan Need for Continued Stay: Discharge may exacerbated symptoms, Severe functional impairment Progress Toward Problem(s) and Goals/Treatment Plan: Continue medications Support and psychoeducation daily Attend groups and activities daily After care planning by MALACHI Refer to rehab or [facility] Estimated Date of D/C: 09/14/18
[2018-09-14 08:21] VITALS: TEMP 98.6
[2018-09-14] MEDS: Clotrimazole 1% Cream(30 gm) TOP SCH ×2 (09:02→17:13)
[2018-09-14 16:16] VITALS: BP 118/86; PULSE 76
--- NOTE | 2018-09-15 09:14 | PCM.PYCHDC ---
Mental Status Examination - Mental Status Examination Orientation: Person Discharge Summary - Discharge Note Consultations:: List each consultation separately and include: 1. Reason for request. 2. Findings. 3. Follow-up Summary of Hospital Course include:: 1. Description of specific treatment plan utilized for patients during their course of treatmen. 2. Summarize the time- course for resolution of acute symptoms and/or regressed behaviors. 3. Describe issues identified and worked on during hospitalization. 4. Describe medication utilized. 5. Describe medical problems identified and treated. 6. Reassessment of suicide risk Summary of Hospital Course: The patient is seen, chart reviewed and case discussed. This is a 43-year-old male, single with 5 children, from age [age]. 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 The patient says he is here for depression and drugs again. He says he has been depressed since age 19 but it has gotten worse over time and more recently he was thinking about suicide again. He has some paranoia but no hallucinations. He also uses heroin 5 bags IV for the past 20 years but it was higher before. Longest sobriety was 7 years. He has been to detox 5 times and rehabilitation twice; [facility] and [facility]. He uses cocaine IV for 20 years denies all other drugs except for cigarettes which is half pack per day and sometimes Xanax 4 mg a week. Pt recently went to [facility] rehab which is a terminal worker program in [place] but quit after 1 month. He now wants to go to a methadone program in [place], where he lives. However, he had a fight with his GF and may not be able to return Past psych history: No suicide attempts but 3-4 admissions with depression Medical history: Hepatitis C Family psych history: Mother and psych issues and brother and uncle had alcohol and drug use. He went to [facility]. He kept changing plans. - Diagnosis (1) Depression Current Visit: Yes Status: Acute (2) Opiate abuse, continuous Current Visit: Yes Status: Acute - Final Diagnosis (DSM 5) Condition upon Discharge: STABLE Disposition: HOME/ ROUTINE Follow-up Treatment Plan: Continue medications Support and psychoeducation daily Attend groups and activities daily After care planning by SW Refer to rehab or [facility] Prescriptions/Medication Reconciliation: Gabapentin [Neurontin] 300 mg PO BID #60 cap Mirtazapine [Remeron] 30 mg PO HS #30 tab traZODone [Desyrel] 100 mg PO HS PRN #30 tab PRN Reason: Insomnia
[2018-09-15] MEDS: Clotrimazole 1% Cream(30 gm) TOP SCH (10:08)
--- NOTE | 2018-09-16 12:54 | PCM.PYCHPN ---
Psychiatric Progress Note - Psychiatric Progress Note Patient seen today, length of contact: 16 min Patient Chief Complaint: "Not good" Problems Identified/Issues Discussed: The pt is seen, chart reviewed, case discussed with staff. Support and psychoeducation given, CBT and NM used briefly No new symptoms reported, improving slowly and needs more time No SEs from medications, risks discussed. After care discussed He changes his mind a lot Now he wants to go to [facility], not methadone program Medication Change: No Medical Record Reviewed: Yes Mental Status Examination - Cognitive Function Orientation: Person - Mood Mood: Depressed (Much less than before) - Affect Affect: Other (Appropriate) - Speech Speech: Appropriate - Formal Thought Process Formal Thought Process: No Impairment - Suicidal Ideation Suicidal Ideation: No - Homicidal Ideation Homicidal Ideation: No Goal/Treatment Plan - Goal/Treatment Plan Need for Continued Stay: Remain at risks for inpatient hospitalization, Discharge may exacerbated symptoms, Severe functional impairment Progress Toward Problem(s) and Goals/Treatment Plan: Continue medications Support and psychoeducation daily Attend groups and activities daily After care planning by MALACHI Refer to rehab or [facility] Estimated Date of D/C: 09/15/18
== END 2018-09-15 12:15 | disposition home or self-care (01) | DRG 773 ==
LOC: C.ER 18:31 → C.5E 21:33
PROVIDERS: ADMIT Psychiatry & Neurology Psychiatry; ATTEND Psychiatry & Neurology Psychiatry
PROC: HZ2ZZZZ Detoxification Services for Substance Abuse Treatment (ICD-10-PCS; principal; 2018-09-09)
DX: F11.23 Opioid dependence with withdrawal (principal); F33.2 Major depressive disorder, recurrent severe without psychotic features; F14.20 Cocaine dependence, uncomplicated; B19.20 Unspecified viral hepatitis C without hepatic coma; Z72.0 Tobacco use

== ENCOUNTER 2018-09-26 19:24 | Inpatient (IN) | payer OTHER, SELFPAY ==
--- NOTE | 2018-09-26 20:01 | C.PDOC ---
History Of Present Illness 43 year old male presents to the ED c/o feeling depressed and hearing voices that are telling him to hang himself. Patient was seen in the ED 2 weeks ago and was admitted for depression. Patient denies HI, injury, fall, trauma, weakness, numbness. Time Seen by Provider: 09/26/18 20:00 Chief Complaint (Nursing): Psychiatric Evaluation History Per: Patient History/Exam Limitations: no limitations Onset/Duration Of Symptoms: Days Current Symptoms Are (Timing): Still Present Suicide/Self Injury Attempted (Context): Other Modifying Factor(s): Narcotics Severity: None Associated Symptoms: Depression, Suicidal Thoughts, Suicidal Plan Recent travel outside of the [place]: No Additional History Per: Patient Past Medical History Reviewed: Historical Data, Nursing Documentation, Vital Signs Vital Signs: Last Vital Signs Temp 98.2 F 09/26/18 19:47 Pulse 89 09/26/18 19:47 Resp 18 09/26/18 19:47 BP 136/92 H 09/26/18 19:47 Pulse Ox 98 09/26/18 19:47 - Medical History PMH: Anxiety, Depression, Hepatitis (C) Denies: Diabetes (Patient denied), HIV (Patient denied), HTN (Patient denied), Chronic Kidney Disease, Seizures (Patient denied), Sexually Transmitted Disease (Patient denied) Surgical History: No Surg Hx - [facility] DETOXIFICATION SERVICES FOR SUBSTANCE ABUSE TREATMENT (09/09/18) GROUP MECHANICAL DESIGNER FOR SUBSTANCE ABUSE TREATMENT, PSYCHOEDUCATION (07/11/18) GROUP MECHANICAL DESIGNER FOR SUBSTANCE ABUSE, COGNITIVE BEHAVIORAL (07/11/18) GROUP PSYCHOTHERAPY (07/11/18) INDIV PSYCHOTHERAPY FOR SUBSTANCE ABUSE TREATMENT, SUPPORT (07/11/18) INDIV PSYCHOTHERAPY FOR SUBSTANCE ABUSE, COGNITIV BEHAVIORAL (07/11/18) INDIV PSYCHOTHERAPY FOR SUBSTANCE ABUSE, PSYCHOEDUCATION (07/11/18) INDIVIDUAL PSYCHOTHERAPY, COGNITIVE-BEHAVIORAL (07/11/18) INDIVIDUAL PSYCHOTHERAPY, SUPPORTIVE (07/11/18) MEDICATION MANAGEMENT (05/14/18) MEDS MGMT FOR SUBSTANCE ABUSE TREATMENT, NICOTINE REPLACE (05/14/18) Family History: States: Unknown Family Hx - Social History Hx Tobacco Use: Yes Hx Alcohol Use: No Hx Substance Use: Yes (Opiates, Meth, Heroin) - Immunization History Hx Tetanus Toxoid Vaccination: No Hx Influenza Vaccination: No Hx Pneumococcal Vaccination: No Review Of Systems Constitutional: Negative for: Fever, Chills Cardiovascular: Negative for: Chest Pain Respiratory: Negative for: Cough, Shortness of Breath Gastrointestinal: Negative for: Nausea, Vomiting, Abdominal Pain Skin: Negative for: Rash Neurological: Negative for: Weakness Psych: Positive for: Depression, Suicidal ideation Physical Exam - Physical Exam Appears: Non-toxic, No Acute Distress Skin: Warm, Dry Head: Normacephalic Eye(s): bilateral: Normal Inspection Neck: Supple Chest: Symmetrical Cardiovascular: Rhythm Regular Respiratory: No Rales, No Rhonchi, No Wheezing Gastrointestinal/Abdominal: Soft, No Tenderness, No Guarding, No Rebound Extremity: Bilateral: Atraumatic, Normal Color And Temperature, Normal ROM Neurological/Psych: Oriented x3, Normal Speech, Normal Cognition Gait: Steady ED Course And Treatment - Laboratory Results Result Diagrams: 09/26/18 20:01 09/26/18 20:23 O2 Sat by Pulse Oximetry: 98 (ON RA) Pulse Ox Interpretation: Normal Progress Note: Plan: - Labs. - UA. - 1:1 Obs. - Crisis eval Disposition Discussed With DrRenetta: Kieran Salgado Comment[facility] took [facility] care at 10:06 PM Doctor Will See Patient In The: Hospital Counseled Patient/Family Regarding: Studies Performed, Diagnosis - Disposition Disposition: HOSPITALIZED Disposition Time: 20:01 Condition: FAIR Forms: [facility] (Swedish) - POA Present On Arrival: Poor Glycemic Control - Clinical Impression Clinical Impression: Major depression, Opioid use disorder - Scribe Statement The provider has reviewed the documentation as recorded by the Scribe Checo Paredes All medical record entries made by the Scribe were at my direction and personally dictated by me. I have reviewed the chart and agree that the record accurately reflects my personal performance of the history, physical exam, medical decision making, and the department course for this patient. I have also personally directed, reviewed, and agree with the discharge instructions and disposition. Decision To Admit - Pt Status Changed To: Hospital Disposition Of: Inpatient - Admit Certification Admit to Inpatient:: After my assessment, the patient will require hospitalization for at least two midnights. This is because of the severity of symptoms shown, intensity of services needed, and/or the medical risk in this patient being treated as an outpatient. - InPatient: Physician Admission Certification: I certify that this patient requires 2 or more midnights of care for the following reason:: After my assessment, the patient will require hospitalization for at least two midnights. This is because of the severity of symptoms shown, intensity of services needed, and/or the medical risk in this patient being treated as an outpatient. - . Bed Request Type: Psychiatry Admitting Physician: Kieran Salgado Patient Diagnosis: Major depression, Opioid use disorder
[2018-09-26 20:32] LABS: BASO % 0.5 % (0.0-2.0); EOS % 0.8 % (0.0-4.0); HEMOGLOBIN 14.4 g/dL (12.0-18.0); LYMPH % 20.6 % (20.0-40.0); MEAN CELL VOLUME 93.5 fL (80.0-94.0); MEAN CORPUSCULAR HEMOGLOBIN 32.1 pg (27.0-31.0); MEAN CORPUSCULAR HGB CONC 34.4 g/dL (33.0-37.0); MEAN PLATELET VOLUME 10.1 fL (7.2-11.7); MONO # 0.2 K/uL (0.0-0.8); MONO % 4.1 % (0.0-10.0); NEUT # 3.8 K/uL (1.8-7.0); NRBC % 0.2 % (0.0-2.0); RBC 4.5 Mil/uL (4.40-5.90); RED CELL DISTRIBUTION WIDTH 13.5 % (11.5-14.5); WHITE BLOOD COUNT 5.1 K/uL (4.8-10.8)
[2018-09-26 20:36] LABS: URINE BILIRUBIN NEGATIVE (NEGATIVE); URINE BLOOD NEGATIVE (NEGATIVE); URINE CLARITY Clear (Clear); URINE COLOR Yellow (YELLOW); URINE GLUCOSE (UA) NORMAL (Normal); URINE LEUKOCYTE ESTERASE NEG Leu/uL (Negative); URINE PROTEIN NEGATIVE (NEGATIVE); URINE UROBILINOGEN NORMAL mg/dL (0.2-1.0)
[2018-09-26 20:43] LABS: BARBITURATES, UR NEGATIVE (NEGATIVE); BENZODIAZEPINES, UR NEGATIVE (NEGATIVE); PHENCYCLIDINE, UR NEGATIVE (NEGATIVE)
[2018-09-26 20:54] LABS: OPIATES, UR POSITIVE (NEGATIVE)
[2018-09-26 20:54] LABS: ALB/GLOB RATIO 0.9 (1.0-2.1); ALBUMIN 4.2 g/dL (3.5-5.0); ALT/SGPT 187 U/L (21-72); AST/SGOT 112 U/L (17-59); BLOOD UREA NITROGEN 14 mg/dL (9-20); GFR NON-AFRICAN AMERICAN > 60
[2018-09-26 22:14] VITALS: O2SAT 97
--- NOTE | 2018-09-26 22:35 | PCM.BM ---
<Fartun Maya - Last Filed: 09/26/18 22:33> Treatment Plan Problems - Problems identified on initial assessmt Substance Abuse Date Initiated: 09/26/18 Time Initiated: 22:33 Assessment reference: NA Status: Active Suicidal Ideations Date Initiated: 09/26/18 Time Initiated: 22:34 Assessment reference: NA Status: Active Treatment assets and liabiliti Patient Assests: cooperative, self-reliant, ADL independent, physically healthy, negotiates basic needs, cognitively intact Patient Liabilities: live alone, financial problems, poor support system, substance abuse - Milieu Protocol Maintain good personal hygiene: daily Encourage regular showers, daily Remind patient to perform daily oral care, daily Assist patient to perform ADL's Conduct patient checks and document Observation sheet: Q15 minutes Maintain personal safety: every shift Educate patient to report safety concerns to staff, every shift Monitor environment for contraband/sharps Medication safety: Monitor for expected outcome, potential side effects: every shift, Assess barriers to learning: every shift, Assess readiness for medication education: every shift <Tariq Gonzalez - Last Filed: 09/27/18 11:52> - Diagnosis (1) Major depression Status: Acute Interventions: 09/27/18 11:53 * Assess/adjust medications daily and /or as needed * See patient on an individual basis 7x/week to assess symptoms of depression * Monitor for side effects & effectiveness of medications * (2) Opioid use disorder Status: Acute Interventions: * Assess 7x/week regarding severity of withdrawal * Educate regarding risks, benefits, side effects and alternatives of medications * Use Motivational Interviewing for abstinence * Use CBT for relapse prevention * Medication management for withdrawal symptoms * Encourage medication assisted treatment * <Marleny Reilly - Last Filed: 09/27/18 13:26> Family Contact Family involvement: Family/SO is involved Family contact: Patient declines to allow family contact at present - Goals for Treatment Patient goals for treatment: "I need to really go to rehab." Discharge/Continuing Care - Education Needs Education Needs: Patient Medication, Patient Coping Skills, Patient Placement options, Patient Community resources - Discharge Discharge Criteria: Tolerates medication w/o severe side effects, No longer exhibiting s/s of withdrawal, Reduction of target symptoms Discharge to:: Substance Abuse Rehab - Treatment Team Participation Discussed with Family/SO: No Was Patient/Family/SO present at Treatment Team Meeting: Yes
[2018-09-27 09:44] VITALS: RESP 20
--- NOTE | 2018-09-27 09:46 | PCM.PSYCH ---
Initial Psychiatric Evaluation - Initial Psychiatric Evaluation Type of Admission: Voluntary Legal Status: Capacity Current Medications: Active Medications Generic Name Dose Route Start Last Admin Trade Name Freq PRN Reason Stop Dose Admin Hydroxyzine HCl 25 mg 09/26/18 22:35 09/26/18 22:49 Atarax PO 25 mg Q6H PRN Administration Anxiety Influenza Virus Vaccine 60 mcg 09/28/18 09:00 Fluzone Quad [id number] IM 09/28/18 09:01 .ONCE ONE Pneumococcal Polyvalent Vaccine 0.5 ml 09/29/18 09:00 Pneumovax 23 Vaccine IM 09/29/18 09:01 .ONCE ONE Trazodone HCl 100 mg 09/26/18 22:45 09/26/18 22:49 Desyrel PO 100 mg HS TIBURCIO Administration Past Psychiatric History - Past Psychiatric History Pertinent Medical Hx (Current Medical&Sleep Prob, Allergies): Allergies Allergy/AdvReac Type Severity Reaction Status Date / Time No Known Allergies Allergy Verified 09/26/18 19:54 traZODone [Desyrel] 100 mg PO HS PRN #30 tab 05/19/18 Gabapentin [Neurontin] 400 mg PO TID 07/11/18 FLUoxetine [Prozac] 20 mg PO DAILY #30 cap 07/19/18 Gabapentin [Neurontin] 300 mg PO BID #60 cap 07/19/18 Gabapentin [Neurontin] 300 mg PO BID #60 cap 09/14/18 Mirtazapine [Remeron] 30 mg PO HS #30 tab 09/14/18 traZODone [Desyrel] 100 mg PO HS PRN #30 tab 09/14/18
[2018-09-27] MEDS ORDERED: Aluminum Hydroxide/Magnesium Hydroxide Susp (30 mL) PO PRN (11:54)
--- NOTE | 2018-09-27 13:32 | PCM.PSYCH ---
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 He was discharged not too long ago from our program to go to [facility] work rehab. He claims the clients there use drugs, so he relapsed. The patient states that he has relapsed in the last 10 days which led him to an overdose and he claims the mother of his son also overdosed. The patient has 2-3 unintentional overdoses in the past. The patient injects 2-3 bags of heroin per day with his last use yesterday at 10 am. The patient was seen in the hospital until 2 weeks ago and was sober for a total of 2 weeks before relapsing 6-7 days ago. The patient denies any cocaine, marijuana, alcohol or pill use during this relapse but smokes less than 0.5 packs per day. The patient has a 20-year history of IV heroin and cocaine use, as well as Xanax use. The patients longest sobriety was 7 years in his late 20s to early 30s. The patient states that he has been to detox 15 times and to rehab 5 times in the past and does not attend NA meetings. The patients brother and uncle have a history of alcohol and drug use. The patient has been depressed since the age of 19, and the depression has increased over the past 6 days which makes him feel like he is drowning and overwhelmed. The has been able to sleep normally but states the he has decreased motivation and increased fatigue. The patient still enjoys cutting hair and has normal concentration but has gained 12 lbs in the past month since he has been trying to get clean. Past Psych History: Depression. The patient has a history of 5-7 hospitalizations related to psychiatric illness and has had suicidal ideations in the past but never followed through. He now denies it. Past Medical History: Hepatitis C Family Psych History: Mother had depression Current Medications: Active Medications Generic Name Dose Route Start Last Admin Trade Name Freq PRN Reason Stop Dose Admin Al Hydrox/Mg Hydrox/Simethicone 30 ml 09/27/18 11:54 Maalox 30 Ml PO TID PRN Indigestion / Heartburn Clonidine HCl 0.1 mg 09/27/18 11:54 Catapres PO Q4 PRN COWS Score More or Equal to 5 Gabapentin 300 mg 09/27/18 11:15 09/27/18 11:30 Neurontin PO 300 mg BID TIBURCIO Administration Hydroxyzine HCl 50 mg 09/27/18 10:30 Atarax PO Q6H PRN Anxiety Influenza Virus Vaccine 60 mcg 09/28/18 09:00 Fluzone Quad [id number] IM 09/28/18 09:01 .ONCE ONE Loperamide HCl 2 mg 09/27/18 11:54 Imodium PO Q8 PRN Diarrhea Methadone HCl 15 mg 09/28/18 10:00 Methadone PO 10/02/18 09:59 DAILY TIBURCIO Taper Mirtazapine 30 mg 09/27/18 22:00 Remeron PO HS TIBURCIO Ondansetron HCl 4 mg 09/27/18 11:54 Zofran Tab PO Q8 PRN Nausea/Vomiting Pneumococcal Polyvalent Vaccine 0.5 ml 09/29/18 09:00 Pneumovax 23 Vaccine IM 09/29/18 09:01 .ONCE ONE Pseudoephedrine HCl 60 mg 09/27/18 11:54 Sudafed Tab PO QID PRN Nasal/Sinus Congestion Trazodone HCl 100 mg 09/26/18 22:45 09/26/18 22:49 Desyrel PO 100 mg HS TIBURCIO Administration Past Psychiatric History - Past Psychiatric History Previous Treatment History: Inpatient Pertinent Medical Hx (Current Medical&Sleep Prob, Allergies): Allergies Allergy/AdvReac Type Severity Reaction Status Date / Time No Known Allergies Allergy Verified 09/26/18 19:54 traZODone [Desyrel] 100 mg PO HS PRN #30 tab 05/19/18 Gabapentin [Neurontin] 400 mg PO TID 07/11/18 FLUoxetine [Prozac] 20 mg PO DAILY #30 cap 07/19/18 Gabapentin [Neurontin] 300 mg PO BID #60 cap 07/19/18 Gabapentin [Neurontin] 300 mg PO BID #60 cap 09/14/18 Mirtazapine [Remeron] 30 mg PO HS #30 tab 09/14/18 traZODone [Desyrel] 100 mg PO HS PRN #30 tab 09/14/18 Review of Systems - Neurological Neurological: UNREMARKABLE - Psychiatric Psychiatric: Abnormal Sleep Pattern, Anhedonia, Anxiety, Depression, Difficulty Concentrating, Irritability. absent: Hallucinations, Homicidal Ideation, Suicidal Ideation Mental Status Examination - Personal Presentation Personal Presentation: Looks stated age - Affect Affect: Constricted - Motor Activity Motor Activity: Calm - Reliability in Providing Information Reliability in Providing Information: Good - Speech Speech: Organized - Mood Mood: Depressed, Anxious - Formal Thought Process Formal Thought Process: No Impairment - Cognitive Functions Orientation: Person, Place, Situation, Time Sensorium: Alert Attention/Concentration: Easily distracted Estimate of Intelligence: Average Judgement: Intact, as evidence by: Insight regarding need for hospitalization Memory: Recent intact, as evidence by: Ability to recall events of the day, Remote intact, as evidenced by: Abilit to recall sig. life events - Risk Risk: Withdrawal, Diminished functioning - Strength & Assets Inventory Strength & Assets Inventory: Cooperative - Limitations Limitations: Living alone DSM 5 DX - DSM 5 DSM 5 Diagnosis: Major Depressive Disorder, recurrent, severe without psychosis Opioid withdrawal Opioid use d/osevere Personality d/o - unspecified - Recommended/Plan of Treatment Treatment Recommendations and Plan of Treatment: Remeron for depression Taper with Methadone Gabapentin for augmentation if needed As needed medication All risks, benefits and alternatives of the meds discussed and the patient agreed and understood Attend groups and activities Supportive therapy and psychoeducation NC for abstinence CBT for relapse prevention Encourage MAT Refer to rehab or IOP, and self-help groups Teach healthy lifestyle methods, i.e. diet, exercise, meditation Smoking cessation with NC Nicotine patch if needed 33 min Projected ELOS: 4-5 days - Smoking Cessation Smoking Cessation Initiated: Yes
[2018-09-28] MEDS ORDERED: Influenza Vaccine 60 MCG/0.5 ML SYR (3 yr & up) IM ONE (09:00)
--- NOTE | 2018-09-28 13:39 | PCM.PYCHPN ---
Psychiatric Progress Note - Psychiatric Progress Note Patient seen today, length of contact: 16 min Patient Chief Complaint: "I'm still down" Problems Identified/Issues Discussed: The pt is seen, chart reviewed, case discussed with staff. The pt is compliant with medications and reports no side-effects. Symptoms are improving but needs more time to stabilize. Pt attends groups and activities. Support given, psycho-education provided. After care discussed. Medication Change: Yes Medical Record Reviewed: Yes Mental Status Examination - Cognitive Function Orientation: Person, Place, Situation, Time Memory: Intact Attention: WNL Concentration: Poor Association: WNL Fund of Knowledge: WNL - Mood Mood: Depressed, Anxious - Affect Affect: Constricted - Speech Speech: Appropriate - Formal Thought Process Formal Thought Process: No Impairment - Suicidal Ideation Suicidal Ideation: No - Homicidal Ideation Homicidal Ideation: No Goal/Treatment Plan - Goal/Treatment Plan Need for Continued Stay: Severe depression anxiety, Discharge may exacerbated symptoms, Severe functional impairment Progress Toward Problem(s) and Goals/Treatment Plan: Remeron for depression Taper with Methadone Gabapentin for augmentation if needed As needed medication All risks, benefits and alternatives of the meds discussed and the patient agreed and understood Attend groups and activities Supportive therapy and psychoeducation SD for abstinence CBT for relapse prevention Encourage MAT Refer to rehab or IOP, and self-help groups Teach healthy lifestyle methods, i.e. diet, exercise, meditation Smoking cessation with SD Nicotine patch if needed Estimated Date of D/C: 10/01/18
[2018-09-29] MEDS ORDERED: Pneumococcal 23-Valent Vaccine IM ONE (09:00)
--- NOTE | 2018-09-29 15:26 | PCM.PYCHPN ---
Psychiatric Progress Note - Psychiatric Progress Note Patient seen today, length of contact: 16 min Patient Chief Complaint: "I was think about leaving" Problems Identified/Issues Discussed: The pt is seen, chart reviewed, case discussed with staff. Support and psychoeducation given, CBT and PA used briefly No new symptoms reported, improving slowly and needs more time He agreed to stay and complete his detox and improve his mood Still has vague SI - no plans, will follow safety plan, contracts for safety. No SEs from medications, risks discussed. After care discussed Medication Change: No Medical Record Reviewed: Yes Mental Status Examination - Cognitive Function Orientation: Person, Place, Situation, Time Memory: Intact Attention: WNL Concentration: Poor Association: WNL Fund of Knowledge: WNL - Mood Mood: Depressed, Anxious - Affect Affect: Constricted - Speech Speech: Appropriate - Formal Thought Process Formal Thought Process: No Impairment - Suicidal Ideation Suicidal Ideation: No - Homicidal Ideation Homicidal Ideation: No Goal/Treatment Plan - Goal/Treatment Plan Need for Continued Stay: Severe depression anxiety, Discharge may exacerbated symptoms, Severe functional impairment Progress Toward Problem(s) and Goals/Treatment Plan: Remeron for depression Taper with Methadone Gabapentin for augmentation if needed As needed medication All risks, benefits and alternatives of the meds discussed and the patient agreed and understood Attend groups and activities Supportive therapy and psychoeducation PA for abstinence CBT for relapse prevention Encourage MAT Refer to rehab or IOP, and self-help groups Teach healthy lifestyle methods, i.e. diet, exercise, meditation Smoking cessation with PA Nicotine patch if needed Estimated Date of D/C: 10/01/18
[2018-09-30] MEDS: buPROPion 150 mg/24 Hours XL Tab PO SCH (09:01)
--- NOTE | 2018-09-30 11:40 | PCM.PYCHPN ---
Psychiatric Progress Note - Psychiatric Progress Note Patient seen today, length of contact: 16 min Patient Chief Complaint: "I am not ready" Problems Identified/Issues Discussed: The pt is seen, chart reviewed, case discussed with staff. The pt is compliant with medications and reports no side-effects. Symptoms are improving but needs more time to stabilize. Pt attends groups and activities. Support given, psycho-education provided. After care discussed. Will go to [facility] Medication Change: Yes (add wellbutrin xl for depression) Medical Record Reviewed: Yes Mental Status Examination - Cognitive Function Orientation: Person, Place, Situation, Time Memory: Intact Attention: WNL Concentration: Poor Association: WNL Fund of Knowledge: WNL - Mood Mood: Depressed, Anxious - Affect Affect: Constricted - Speech Speech: Appropriate - Formal Thought Process Formal Thought Process: No Impairment - Suicidal Ideation Suicidal Ideation: No - Homicidal Ideation Homicidal Ideation: No Goal/Treatment Plan - Goal/Treatment Plan Need for Continued Stay: Severe depression anxiety, Discharge may exacerbated symptoms, Severe functional impairment Progress Toward Problem(s) and Goals/Treatment Plan: Remeron for depression Wellbutrin XL added to augment Taper with Methadone Gabapentin for augmentation if needed As needed medication All risks, benefits and alternatives of the meds discussed and the patient agreed and understood Attend groups and activities Supportive therapy and psychoeducation LA for abstinence CBT for relapse prevention Encourage MAT Refer to rehab or IOP, and self-help groups Teach healthy lifestyle methods, i.e. diet, exercise, meditation Smoking cessation with LA Nicotine patch if needed Estimated Date of D/C: 10/01/18
[2018-10-01 06:51] VITALS: BP 116/75; PULSE 62; TEMP 97.5
[2018-10-01] MEDS: buPROPion 150 mg/24 Hours XL Tab PO SCH (09:07)
--- NOTE | 2018-10-01 10:00 | PCM.PYCHDC ---
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 He was discharged not too long ago from our program to go to [facility] work rehab. He claims the clients there use drugs, so he relapsed. The patient states that he has relapsed in the last 10 days which led him to an overdose and he claims the mother of his son also overdosed. The patient has 2-3 unintentional overdoses in the past. The patient injects 2-3 bags of heroin per day with his last use yesterday at 10 am. The patient was seen in the hospital until 2 weeks ago and was sober for a total of 2 weeks before relapsing 6-7 days ago. The patient denies any cocaine, marijuana, alcohol or pill use during this relapse but smokes less than 0.5 packs per day. The patient has a 20-year his tory of IV heroin and cocaine use, as well as Xanax use. The patients longest sobriety was 7 years in his late 20s to early 30s. The patient states that he has been to detox 15 times and to rehab 5 times in the past and does not attend NA meetings. The patients brother and uncle have a history of alcohol and drug use. The patient has been depressed since the age of 19, and the depression has increased over the past 6 days which makes him feel like he is drowning and overwhelmed. The has been able to sleep normally but states the he has decreased motivation and increased fatigue. The patient still enjoys cutting hair and has normal concentration but has gained 12 lbs in the past month since he has been trying to get clean. Past Psych History: Depression. The patient has a history of 5-7 hospitalizations related to psychiatric illness and has had suicidal ideations in the past but never followed through. He now denies it. Consultations:: List each consultation separately and include: 1. Reason for request. 2. Findings. 3. Follow-up Summary of Hospital Course include:: 1. Description of specific treatment plan utilized for patients during their course of treatmen. 2. Summarize the time- course for resolution of acute symptoms and/or regressed behaviors. 3. Describe issues identified and worked on during hospitalization. 4. Describe medication utilized. 5. Describe medical problems identified and treated. 6. Reassessment of suicide risk - Diagnosis (1) Major depression Current Visit: Yes Status: Acute (2) Opioid use disorder Current Visit: Yes Status: Acute - Final Diagnosis (DSM 5) Condition upon Discharge: FAIR DSM 5: Major Depressive Disorder, recurrent, severe without psychosis Opioid withdrawal Opioid use d/osevere Personality d/o - unspecified Disposition: HOME/ ROUTINE Prescriptions/Medication Reconciliation: buPROPion XL [Wellbutrin XL] 150 mg PO DAILY #30 t24 Mirtazapine [Remeron] 30 mg PO HS #30 tab traZODone [Desyrel] 100 mg PO HS #30 tab
== END 2018-10-01 10:34 | disposition home or self-care (01) | DRG 772 ==
LOC: C.ER 19:24 → C.5E 22:05
PROC: HZ42ZZZ Group Counseling for Substance Abuse Treatment, Cognitive-Behavioral (ICD-10-PCS; principal; 2018-09-26)
PROC: GZHZZZZ Group Psychotherapy (ICD-10-PCS; 2018-09-26)
PROC: HZ2ZZZZ Detoxification Services for Substance Abuse Treatment (ICD-10-PCS; 2018-09-26)
PROC: HZ52ZZZ Individual Psychotherapy for Substance Abuse Treatment, Cognitive-Behavioral (ICD-10-PCS; 2018-09-26)
PROC: HZ59ZZZ Individual Psychotherapy for Substance Abuse Treatment, Supportive (ICD-10-PCS; 2018-09-26)
PROC: HZ56ZZZ Individual Psychotherapy for Substance Abuse Treatment, Psychoeducation (ICD-10-PCS; 2018-09-26)
PROC: HZ46ZZZ Group Counseling for Substance Abuse Treatment, Psychoeducation (ICD-10-PCS; 2018-09-26)
PROC: GZ58ZZZ Individual Psychotherapy, Cognitive-Behavioral (ICD-10-PCS; 2018-09-26)
PROC: GZ56ZZZ Individual Psychotherapy, Supportive (ICD-10-PCS; 2018-09-26)
DX: F11.23 Opioid dependence with withdrawal (principal); F33.2 Major depressive disorder, recurrent severe without psychotic features; F17.210 Nicotine dependence, cigarettes, uncomplicated; Z81.8 Family history of other mental and behavioral disorders

== ENCOUNTER 2018-11-06 01:09 | Inpatient (IN) | payer OTHER, SELFPAY ==
--- NOTE | 2018-11-06 01:32 | C.PDOC ---
History Of Present Illness Patient presents to the ER stating he has been feeling depressed and has had suicidal thoughts for the past few days with thoughts of taking pills. He admits to heroin use today. Denies any physical complaints at this time. Time Seen by Provider: 11/06/18 01:31 Chief Complaint (Nursing): Psychiatric Evaluation History Per: Patient History/Exam Limitations: no limitations Onset/Duration Of Symptoms: Days Current Symptoms Are (Timing): Still Present Suicide/Self Injury Attempted (Context): None Modifying Factor(s): Other (Heroin) Associated Symptoms: Depression, Suicidal Thoughts, Suicidal Plan Involuntary Hold By: None Recent travel outside of the [place]: No Past Medical History Reviewed: Historical Data, Nursing Documentation, Vital Signs Vital Signs: Last Vital Signs Temp 97.9 F 11/06/18 01:24 Pulse 90 11/06/18 01:24 Resp 16 11/06/18 01:24 BP 122/81 11/06/18 01:24 Pulse Ox 95 11/06/18 01:24 - Medical History PMH: Anxiety, Depression, Hepatitis (C), Schizophrenia Denies: Diabetes (Patient denied), HIV (Patient denied), HTN (Patient denied), Chronic Kidney Disease, Seizures (Patient denied), Sexually Transmitted Disease (Patient denied) - [facility] Procedures DETOXIFICATION SERVICES FOR SUBSTANCE ABUSE TREATMENT (09/26/18) GROUP BOX TOE FLANGER STITCHDOWNS FOR SUBSTANCE ABUSE TREATMENT, PSYCHOEDUCATION (09/26/18) GROUP BOX TOE FLANGER STITCHDOWNS FOR SUBSTANCE ABUSE, COGNITIVE BEHAVIORAL (09/26/18) GROUP PSYCHOTHERAPY (09/26/18) INDIV PSYCHOTHERAPY FOR SUBSTANCE ABUSE TREATMENT, SUPPORT (09/26/18) INDIV PSYCHOTHERAPY FOR SUBSTANCE ABUSE, COGNITIV BEHAVIORAL (09/26/18) INDIV PSYCHOTHERAPY FOR SUBSTANCE ABUSE, PSYCHOEDUCATION (09/26/18) INDIVIDUAL PSYCHOTHERAPY, COGNITIVE-BEHAVIORAL (09/26/18) INDIVIDUAL PSYCHOTHERAPY, SUPPORTIVE (09/26/18) MEDICATION MANAGEMENT (05/14/18) MEDS MGMT FOR SUBSTANCE ABUSE TREATMENT, NICOTINE REPLACE (05/14/18) Family History: States: No Known Family Hx - Social History Hx Tobacco Use: Yes Hx Alcohol Use: Yes Hx Substance Use: Yes (Opiates, Methadone, Heroin) - Immunization History Hx Tetanus Toxoid Vaccination: No Hx Influenza Vaccination: No Hx Pneumococcal Vaccination: No Review Of Systems Constitutional: Negative for: Fever, Chills Cardiovascular: Negative for: Chest Pain, Palpitations Respiratory: Negative for: Cough, Shortness of Breath Gastrointestinal: Negative for: Nausea, Vomiting Neurological: Negative for: Weakness, Numbness Psych: Positive for: Depression, Suicidal ideation (w/ plan) Physical Exam - Physical Exam Appears: Non-toxic Skin: Warm, Dry Head: Normacephalic Oral Mucosa: Moist Chest: Symmetrical, No Tenderness Cardiovascular: Rhythm Regular Respiratory: No Rales, No Rhonchi, No Wheezing Gastrointestinal/Abdominal: Soft, No Tenderness Neurological/Psych: Oriented x3 ED Course And Treatment - Laboratory Results Result Diagrams: 11/06/18 01:49 11/06/18 01:49 O2 Sat by Pulse Oximetry: 95 (Room air) Pulse Ox Interpretation: Normal Progress Note: Urinalysis and blood work ordered. Crisis notified. Disposition Counseled Patient/Family Regarding: Studies Performed, Diagnosis - Disposition Disposition Time: 01:32 Condition: FAIR Forms: [facility] ([place]) - Clinical Impression Clinical Impression: Opioid use disorder, Major depression - Scribe Statement The provider has reviewed the documentation as recorded by the Scribe Matias Gallego All medical record entries made by the Scribe were at my direction and personally dictated by me. I have reviewed the chart and agree that the record accurately reflects my personal performance of the history, physical exam, medical decision making, and the department course for this patient. I have also personally directed, reviewed, and agree with the discharge instructions and disposition. Physician Patient Turnover Patient Signed Over To: Danielle Lewis Handoff Comments: pending crisis evaluation and disposition
[2018-11-06 01:54] LABS: BASO % 0.4 % (0.0-2.0); EOS # 0.1 K/uL (0.0-0.7); EOS % 1.7 % (0.0-4.0); HEMOGLOBIN 15.2 g/dL (12.0-18.0); LYMPH # 1.3 K/uL (1.0-4.3); LYMPH % 25.5 % (20.0-40.0); MEAN CELL VOLUME 94.2 fL (80.0-94.0); MEAN CORPUSCULAR HEMOGLOBIN 32.3 pg (27.0-31.0); MEAN CORPUSCULAR HGB CONC 34.3 g/dL (33.0-37.0); MONO # 0.3 K/uL (0.0-0.8); MONO % 5.8 % (0.0-10.0); NEUT # 3.5 K/uL (1.8-7.0); NEUT % 66.6 % (50.0-75.0); NRBC % 0.1 % (0.0-2.0); RBC 4.69 Mil/uL (4.40-5.90); RED CELL DISTRIBUTION WIDTH 14.3 % (11.5-14.5); WHITE BLOOD COUNT 5.2 K/uL (4.8-10.8)
[2018-11-06 01:55] LABS: SQUAMOUS EPITHIAL < 1 /hpf (0-5); URINE BILIRUBIN NEGATIVE (NEGATIVE); URINE BLOOD NEGATIVE (NEGATIVE); URINE CLARITY Clear (Clear); URINE COLOR Yellow (YELLOW); URINE GLUCOSE (UA) NORMAL (Normal); URINE LEUKOCYTE ESTERASE NEG Leu/uL (Negative); URINE PROTEIN NEGATIVE (NEGATIVE); URINE UROBILINOGEN NORMAL mg/dL (0.2-1.0)
[2018-11-06 02:08] LABS: ALBUMIN 4.6 g/dL (3.5-5.0); ALT/SGPT 250 U/L (21-72); AST/SGOT 137 U/L (17-59); BLOOD UREA NITROGEN 16 mg/dL (9-20); CALCIUM 9.2 mg/dl (8.6-10.4); GFR NON-AFRICAN AMERICAN > 60
[2018-11-06 02:09] LABS: BARBITURATES, UR NEGATIVE (NEGATIVE); BENZODIAZEPINES, UR NEGATIVE (NEGATIVE); PHENCYCLIDINE, UR NEGATIVE (NEGATIVE)
[2018-11-06 02:16] LABS: OPIATES, UR POSITIVE (NEGATIVE)
[2018-11-06 09:21] VITALS: O2SAT 96
--- NOTE | 2018-11-06 09:44 | PCM.PSYCH ---
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 He was discharged not too long ago from our program to go to [facility] work rehab in [place]. He claims he relapsed there last week and taking up to 3-4 bags heroin and felt more depressed and confessed his relapsed to them. They reportedly sent him here and will take him back after stabilization. The patient has 2-3 unintentional overdoses in the past. The patient injects 2-3 bags of heroin per day with his last use yesterday. The patient denies any cocaine, marijuana, alcohol or pill use during this relapse but smokes less than 0.5 packs per day. The patient has a 20-year history of IV heroin and cocaine use, as well as Xanax use. The patients longest sobriety was 7 years in his late 20s to early 30s. The patient states that he has been to detox 15 times and to rehab 5 times in the past and does not attend NA meetings. The patients brother and uncle have a history of alcohol and drug use. The patient has been depressed since the age of 19, and the depression has increased over the past 6 days which makes him feel like he is drowning and overwhelmed. The has been able to sleep normally but states the he has decreased motivation and increased fatigue. The patient still enjoys cutting hair and has normal concentration but has gained 12 lbs in the past month since he has been trying to get clean. Past Psych History: Depression. The patient has a history of 5-7 hospitalizations related to psychiatric illness and has had suicidal ideations in the past but never followed through. He now denies it. Past Medical History: Hepatitis C Family Psych History: Mother had depression Past Psychiatric History - Past Psychiatric History Previous Treatment History: Inpatient Pertinent Medical Hx (Current Medical&Sleep Prob, Allergies): Allergies Allergy/AdvReac Type Severity Reaction Status Date / Time No Known Allergies Allergy Verified 11/06/18 01:50 Gabapentin [Neurontin] 300 mg PO BID #60 cap 09/14/18 buPROPion XL [Wellbutrin XL] 150 mg PO DAILY #30 t24 09/30/18 traZODone [Desyrel] 100 mg PO HS #30 tab 09/30/18 Review of Systems - Psychiatric Psychiatric: Abnormal Sleep Pattern, Anhedonia, Anxiety, Change in Appetite, Depression, Difficulty Concentrating. absent: Hallucinations, Homicidal Ideation, Suicidal Ideation Mental Status Examination - Personal Presentation Personal Presentation: Looks stated age - Affect Affect: Constricted - Motor Activity Motor Activity: Calm - Reliability in Providing Information Reliability in Providing Information: Good - Speech Speech: Organized - Mood Mood: Depressed, Anxious - Formal Thought Process Formal Thought Process: No Impairment - Cognitive Functions Orientation: Person, Place, Situation, Time Sensorium: Alert Attention/Concentration: Attentive Estimate of Intelligence: Average Judgement: Intact, as evidence by: Insight regarding need for hospitalization Memory: Recent intact, as evidence by: Ability to recall events of the day, Remote intact, as evidenced by: Abilit to recall sig. life events - Risk Risk: Withdrawal, Diminished functioning - Strength & Assets Inventory Strength & Assets Inventory: Cooperative - Limitations Limitations: Living alone, Other DSM 5 DX - DSM 5 DSM 5 Diagnosis: Major Depressive Disorder, recurrent, severe without psychosis Opioid withdrawal Opioid use d/osevere Personality d/o - unspecified - Recommended/Plan of Treatment Treatment Recommendations and Plan of Treatment: Remeron for depression Taper with Methadone Gabapentin for augmentation if needed As needed medication All risks, benefits and alternatives of the meds discussed and the patient agreed and understood Attend groups and activities Supportive therapy and psychoeducation [place] for abstinence CBT for relapse prevention Encourage MAT Refer to rehab or IOP, and self-help groups Teach healthy lifestyle methods, i.e. diet, exercise, meditation Smoking cessation with [place] Nicotine patch if needed 33 min Projected ELOS: 5 days Prognosis: ok w treatment, needs MAT - Smoking Cessation Smoking Cessation Initiated: Yes
[2018-11-06] MEDS ORDERED: Aluminum Hydroxide/Magnesium Hydroxide Susp (30 mL) PO PRN (09:46)
[2018-11-06] MEDS ORDERED: Pneumococcal 23-Valent Vaccine IM ONE (10:30)
[2018-11-06] MEDS ORDERED: Influenza Vaccine 60 mcg/0.5 mL SYR (4YR UP) IM ONE (10:30)
--- NOTE | 2018-11-06 10:51 | PCM.BM ---
<Therese Swartzcy - Last Filed: 11/06/18 10:49> Treatment Plan Problems - Problems identified on initial assessmt anxiety related to substance abuse Date Initiated: 11/06/18 Time Initiated: 10:51 Assessment reference: NA Status: Active feelings of worthlessness Date Initiated: 11/06/18 Time Initiated: 10:52 Assessment reference: NA Status: Active Treatment assets and liabiliti Patient Assests: cooperative, self-reliant, physically healthy, negotiates basic needs, cognitively intact Patient Liabilities: financial problems, substance abuse - Milieu Protocol Maintain good personal hygiene: daily Encourage regular showers, daily Remind patient to perform daily oral care, daily Assist patient to perform ADL's Conduct patient checks and document Observation sheet: Q15 minutes Maintain personal safety: every shift Educate patient to report safety concerns to staff, every shift Monitor environment for contraband/sharps Medication safety: Monitor for expected outcome, potential side effects: every shift, Assess barriers to learning: every shift, Assess readiness for medication education: every shift Milieu Narrative: Remeron for depression Taper with Methadone Gabapentin for augmentation if needed As needed medication All risks, benefits and alternatives of the meds discussed and the patient agreed and understood Attend groups and activities Supportive therapy and psychoeducation [place] for abstinence CBT for relapse prevention Encourage MAT Refer to rehab or IOP, and self-help groups Teach healthy lifestyle methods, i.e. diet, exercise, meditation Smoking cessation with [place] Nicotine patch if needed 33 min Discharge/Continuing Care - Treatment Team Participation Patient/Family/SO Statement: Remeron for depression Taper with Methadone Gabapentin for augmentation if needed As needed medication All risks, benefits and alternatives of the meds discussed and the patient agreed and understood Attend groups and activities Supportive therapy and psychoeducation [place] for abstinence CBT for relapse prevention Encourage MAT Refer to rehab or IOP, and self-help groups Teach healthy lifestyle methods, i.e. diet, exercise, meditation Smoking cessation with [place] Nicotine patch if needed 33 min <Marleny Reilly - Last Filed: 11/08/18 11:51> Family Contact Family involvement: Family/SO is involved Family contact: Patient declines to allow family contact at present - Goals for Treatment Patient goals for treatment: "I want to go to a sober living home." Discharge/Continuing Care - Education Needs Education Needs: Patient Medication, Patient Coping Skills, Patient Placement options, Patient Community resources - Discharge Discharge Criteria: Tolerates medication w/o severe side effects, No longer exhibiting s/s of withdrawal, Reduction of target symptoms Discharge to:: Detention - Treatment Team Participation Discussed with Family/SO: No Was Patient/Family/SO present at Treatment Team Meeting: Yes <Tariq Gonzalez - Last Filed: 11/09/18 15:02> - Diagnosis (1) Major depression Status: Acute Interventions: 11/09/18 15:02 * Assess/adjust medications daily and /or as needed * See patient on an individual basis 7x/week to assess symptoms of depression * Monitor for side effects & effectiveness of medications * (2) Opioid use disorder Status: Acute Interventions: 11/09/18 15:02 * Assess 7x/week regarding severity of withdrawal * Educate regarding risks, benefits, side effects and alternatives of medications * Use Motivational Interviewing for abstinence * Use CBT for relapse prevention * Medication management for withdrawal symptoms * Encourage medication assisted treatment *
--- NOTE | 2018-11-07 23:11 | PCM.PYCHPN ---
Psychiatric Progress Note - Psychiatric Progress Note Patient seen today, length of contact: 15 min Medication Change: Yes Medical Record Reviewed: Yes Mental Status Examination - Homicidal Ideation Homicidal Ideation: No Goal/Treatment Plan - Goal/Treatment Plan Progress Toward Problem(s) and Goals/Treatment Plan: Remeron for depression Taper with Methadone Gabapentin for augmentation if needed As needed medication All risks, benefits and alternatives of the meds discussed and the patient agreed and understood Attend groups and activities Supportive therapy and psychoeducation [place] for abstinence CBT for relapse prevention Encourage MAT Refer to rehab or IOP, and self-help groups Teach healthy lifestyle methods, i.e. diet, exercise, meditation Smoking cessation with [place] Nicotine patch if needed 33 min
--- NOTE | 2018-11-08 23:58 | PCM.PYCHPN ---
Psychiatric Progress Note - Psychiatric Progress Note Patient seen today, length of contact: 15 min Patient Chief Complaint: I am feeling little better Problems Identified/Issues Discussed: Patient was seen and evaluated, chart reviewed and discussed with the staff. Patient reports some improvement in his mood and reports some improvement in the feelings of hopelessness and helplessness. He denies any auditory or visual hallucinations. He reports that he wants to go to an inpatient small duration program. He is taking medication denies any side effects. Symptoms are improving but he needs to stay longer for further stabilization. Supportive therapy was given Medication Change: Yes Medical Record Reviewed: Yes Mental Status Examination - Cognitive Function Orientation: Person, Place, Situation, Time Memory: Intact Attention: WNL Concentration: Poor Association: WNL Fund of Knowledge: Poor - Mood Mood: Depressed, Anxious - Affect Affect: Constricted - Speech Speech: Soft - Formal Thought Process Formal Thought Process: No Impairment - Suicidal Ideation Suicidal Ideation: No - Homicidal Ideation Homicidal Ideation: No Goal/Treatment Plan - Goal/Treatment Plan Need for Continued Stay: Severe depression anxiety, Severe functional impairment Progress Toward Problem(s) and Goals/Treatment Plan: Major Depressive Disorder, recurrent, severe without psychosis Opioid withdrawal Opioid use d/osevere Personality d/o - unspecified Remeron for depression Taper with Methadone Gabapentin for augmentation if needed As needed medication All risks, benefits and alternatives of the meds discussed and the patient agreed and understood Attend groups and activities Supportive therapy and psychoeducation [place] for abstinence CBT for relapse prevention Encourage MAT Refer to rehab or IOP, and self-help groups Teach healthy lifestyle methods, i.e. diet, exercise, meditation Smoking cessation with [place] Nicotine patch if needed - Smoking Cessation Smoking Cessation Initiated: No
--- NOTE | 2018-11-09 14:58 | PCM.PYCHPN ---
Psychiatric Progress Note - Psychiatric Progress Note Patient seen today, length of contact: 15 min Patient Chief Complaint: I am feeling little better Problems Identified/Issues Discussed: Patient was seen and evaluated, chart reviewed and discussed with the staff. Patient reports some improvement in his mood and reports some improvement in the feelings of hopelessness and helplessness. He denies any auditory or visual hallucinations. He reports that he wants to go to an inpatient small duration program. He is taking medication denies any side effects. Symptoms are improving but he needs to stay longer for further stabilization. Supportive therapy was given Medication Change: Yes Medical Record Reviewed: Yes Mental Status Examination - Cognitive Function Orientation: Person, Place, Situation, Time Memory: Intact Attention: WNL Concentration: Poor Association: WNL Fund of Knowledge: Poor - Mood Mood: Depressed, Anxious - Affect Affect: Constricted - Speech Speech: Soft - Formal Thought Process Formal Thought Process: No Impairment - Suicidal Ideation Suicidal Ideation: No - Homicidal Ideation Homicidal Ideation: No Goal/Treatment Plan - Goal/Treatment Plan Need for Continued Stay: Severe depression anxiety, Severe functional impairment Progress Toward Problem(s) and Goals/Treatment Plan: Major Depressive Disorder, recurrent, severe without psychosis Opioid withdrawal Opioid use d/osevere Personality d/o - unspecified Remeron for depression Taper with Methadone Gabapentin for augmentation if needed As needed medication All risks, benefits and alternatives of the meds discussed and the patient agreed and understood Attend groups and activities Supportive therapy and psychoeducation [place] for abstinence CBT for relapse prevention Encourage MAT Refer to rehab or IOP, and self-help groups Teach healthy lifestyle methods, i.e. diet, exercise, meditation Smoking cessation with MA Nicotine patch if needed
--- NOTE | 2018-11-10 12:48 | PCM.PYCHPN ---
Psychiatric Progress Note - Psychiatric Progress Note Patient seen today, length of contact: 15 min Patient Chief Complaint: I am feeling little better Problems Identified/Issues Discussed: Patient was seen and evaluated, chart reviewed and discussed with the staff. Patient reports some improvement in his mood and reports some improvement in the feelings of hopelessness and helplessness. He denies any auditory or visual hallucinations. He reports that he wants to go to an inpatient small duration program. He is taking medication denies any side effects. Symptoms are improving but he needs to stay longer for further stabilization. Supportive therapy was given Medication Change: Yes Medical Record Reviewed: Yes Mental Status Examination - Cognitive Function Orientation: Person, Place, Situation, Time Memory: Intact Attention: WNL Concentration: Poor Association: WNL Fund of Knowledge: Poor - Mood Mood: Depressed, Anxious - Affect Affect: Constricted - Speech Speech: Soft - Formal Thought Process Formal Thought Process: No Impairment - Suicidal Ideation Suicidal Ideation: No - Homicidal Ideation Homicidal Ideation: No Goal/Treatment Plan - Goal/Treatment Plan Need for Continued Stay: Severe depression anxiety, Severe functional impairment Progress Toward Problem(s) and Goals/Treatment Plan: Major Depressive Disorder, recurrent, severe without psychosis Opioid withdrawal Opioid use d/osevere Personality d/o - unspecified Remeron for depression Taper with Methadone Gabapentin for augmentation if needed As needed medication All risks, benefits and alternatives of the meds discussed and the patient agreed and understood Attend groups and activities Supportive therapy and psychoeducation [place] for abstinence CBT for relapse prevention Encourage MAT Refer to rehab or IOP, and self-help groups Teach healthy lifestyle methods, i.e. diet, exercise, meditation Smoking cessation with [place] Nicotine patch if needed
[2018-11-11 06:43] VITALS: BP 117/79; PULSE 63; RESP 20; TEMP 98.1
--- NOTE | 2018-11-11 10:38 | PCM.PYCHDC ---
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 He was discharged not too long ago from our program to go to [facility] work rehab in [place]. He claims he relapsed there last week and taking up to 3-4 bags heroin and felt more depressed and confessed his relapsed to them. They reportedly sent him here and will take him back after stabilization. The patient has 2-3 unintentional overdoses in the past. The patient injects 2-3 bags of heroin per day with his last use yesterday. The patient denies any cocaine, marijuana, alcohol or pill use during this relapse but smokes less than 0.5 packs per day. The patient has a 20-year history of IV heroin and cocaine use, as well as Xanax use. The patients longest sobriety was 7 years in his late 20s to early 30s. The patient states that he has been to detox 15 times and to rehab 5 times in the past and does not attend NA meetings. The patients brother and uncle have a history of alcohol and drug use. The patient has been depressed since the age of 19, and the depression has increased over the past 6 days which makes him feel like he is drowning and overwhelmed. The has been able to sleep normally but states the he has decreased motivation and increased fatigue. The patient still enjoys cutting hair and has normal concentration but has gained 12 lbs in the past month since he has been trying to get clean. Past Psych History: Depression. The patient has a history of 5-7 hospitalizations related to psychiatric illness and has had suicidal ideations in the past but never followed through. He now denies it. Consultations:: List each consultation separately and include: 1. Reason for request. 2. Findings. 3. Follow-up Summary of Hospital Course include:: 1. Description of specific treatment plan utilized for patients during their course of treatmen. 2. Summarize the time- course for resolution of acute symptoms and/or regressed behaviors. 3. Describe issues identified and worked on during hospitalization. 4. Describe medication utilized. 5. Describe medical problems identified and treated. 6. Reassessment of suicide risk - Diagnosis (1) Major depression Current Visit: Yes Status: Acute (2) Opioid use disorder Current Visit: Yes Status: Acute - Final Diagnosis (DSM 5) Condition upon Discharge: STABLE DSM 5: Major Depressive Disorder, recurrent, severe without psychosis Opioid withdrawal Opioid use d/osevere Personality d/o - unspecified Disposition: HOME/ ROUTINE Follow-up Treatment Plan: Major Depressive Disorder, recurrent, severe without psychosis Opioid withdrawal Opioid use d/osevere Personality d/o - unspecified Remeron for depression Taper with Methadone Gabapentin for augmentation if needed As needed medication All risks, benefits and alternatives of the meds discussed and the patient agreed and understood Attend groups and activities Supportive therapy and psychoeducation [place] for abstinence CBT for relapse prevention Encourage MAT Refer to rehab or IOP, and self-help groups Teach healthy lifestyle methods, i.e. diet, exercise, meditation Smoking cessation with MA Nicotine patch if needed Prescriptions/Medication Reconciliation: Gabapentin [Neurontin] 300 mg PO TID #90 cap Mirtazapine [Remeron] 30 mg PO HS #30 tab
[2018-11-11] MEDS ORDERED: buPROPion 150 mg/24 Hours XL Tab PO SCH ×2 (11:00)
== END 2018-11-11 11:08 | disposition home or self-care (01) | DRG 751 ==
LOC: C.ER 01:09 → C.5E 08:40
PROVIDERS: ADMIT Psychiatry & Neurology Psychiatry; ATTEND Psychiatry & Neurology Psychiatry
PROC: GZ3ZZZZ Medication Management (ICD-10-PCS; principal; 2018-11-06)
PROC: HZ2ZZZZ Detoxification Services for Substance Abuse Treatment (ICD-10-PCS; 2018-11-06)
PROC: HZ81ZZZ Medication Management for Substance Abuse Treatment, Methadone Maintenance (ICD-10-PCS; 2018-11-06)
PROC: GZHZZZZ Group Psychotherapy (ICD-10-PCS; 2018-11-06)
PROC: HZ80ZZZ Medication Management for Substance Abuse Treatment, Nicotine Replacement (ICD-10-PCS; 2018-11-06)
PROC: GZ56ZZZ Individual Psychotherapy, Supportive (ICD-10-PCS; 2018-11-06)
DX: F33.2 Major depressive disorder, recurrent severe without psychotic features (principal); F11.23 Opioid dependence with withdrawal; F17.210 Nicotine dependence, cigarettes, uncomplicated; F41.9 Anxiety disorder, unspecified; B18.2 Chronic viral hepatitis C; F20.9 Schizophrenia, unspecified; Z81.8 Family history of other mental and behavioral disorders

== ENCOUNTER 2019-03-17 21:20 | Inpatient (IN) | payer OTHER ==
[2019-03-17 21:48] VITALS: BMI 24.4
[2019-03-17 22:26] LABS: SQUAMOUS EPITHIAL < 1 /hpf (0-5); URINE BACTERIA RARE (<OCC); URINE BILIRUBIN NEGATIVE (NEGATIVE); URINE BLOOD NEGATIVE (NEGATIVE); URINE CLARITY Clear (Clear); URINE COLOR Amber (YELLOW); URINE GLUCOSE (UA) NORMAL (Normal); URINE LEUKOCYTE ESTERASE NEG Leu/uL (Negative); URINE PROTEIN NEGATIVE (NEGATIVE)
[2019-03-17 22:38] LABS: BARBITURATES, UR NEGATIVE (NEGATIVE); PHENCYCLIDINE, UR NEGATIVE (NEGATIVE)
[2019-03-17 22:40] LABS: BENZODIAZEPINES, UR POSITIVE (NEGATIVE); OPIATES, UR POSITIVE (NEGATIVE)
[2019-03-17 22:49] LABS: BASO % 0.3 % (0.0-2.0); EOS # 0.1 K/uL (0.0-0.7); EOS % 3.4 % (0.0-4.0); LYMPH # 0.9 K/uL (1.0-4.3); LYMPH % 30.6 % (20.0-40.0); MEAN CORPUSCULAR HEMOGLOBIN 29.3 pg (27.0-31.0); MEAN CORPUSCULAR HGB CONC 33.3 g/dL (33.0-37.0); MEAN PLATELET VOLUME 9.7 fL (7.2-11.7); MONO # 0.2 K/uL (0.0-0.8); MONO % 7.9 % (0.0-10.0); NEUT # 1.7 K/uL (1.8-7.0); NEUT % 57.8 % (50.0-75.0); NRBC % 0.1 % (0.0-2.0); RBC 3.7 Mil/uL (4.40-5.90); RED CELL DISTRIBUTION WIDTH 16.5 % (11.5-14.5); WHITE BLOOD COUNT 2.9 K/uL (4.8-10.8)
[2019-03-17 22:51] LABS: HEMOGLOBIN 10.8 g/dL (12.0-18.0); MEAN CELL VOLUME 87.8 fL (80.0-94.0)
[2019-03-17 22:59] LABS: ALB/GLOB RATIO 0.9 (1.0-2.1); ALBUMIN 3.8 g/dL (3.5-5.0); ALT/SGPT 72 U/L (21-72); AST/SGOT 77 U/L (17-59); BLOOD UREA NITROGEN 14 mg/dL (9-20); CALCIUM 8.7 mg/dl (8.6-10.4); GFR NON-AFRICAN AMERICAN > 60
--- NOTE | 2019-03-17 23:32 | C.PDOC ---
History Of Present Illness 44 year old male presents to the ED for evaluation of depression and suicidal ideation. Patient is homeless has history of heroin abuse. Patient reports he is feeling depresses ad wants to kill himself. Patient has multiple prior mery luations for same. Patient denies HI, hallucinations, other medical complaints at this time. Time Seen by Provider: 03/17/19 21:41 Chief Complaint (Nursing): Psychiatric Evaluation History Per: Patient History/Exam Limitations: no limitations Onset/Duration Of Symptoms: Days Current Symptoms Are (Timing): Still Present Modifying Factor(s): Narcotics Associated Symptoms: Depression, Suicidal Thoughts. denies: Suicidal Plan Recent travel outside of the [place]: No Additional History Per: Patient Past Medical History Reviewed: Historical Data, Nursing Documentation, Vital Signs Vital Signs: Last Vital Signs Temp 98.0 F 03/17/19 21:40 Pulse 70 03/17/19 21:40 Resp 16 03/17/19 21:40 BP 126/83 03/17/19 21:40 Pulse Ox 99 03/17/19 21:40 Primary Care Provider: FAMILY PROVIDER,NO - Medical History PMH: Anxiety, Depression, Hepatitis (C (reported to triage denied to this contract writer)), Schizophrenia Denies: Diabetes (Patient denied), HIV (Patient denied), HTN (Patient denied), Chronic Kidney Disease, Seizures (Patient denied), Sexually Transmitted Disease (Patient denied) Surgical History: No Surg Hx - [facility] DETOXIFICATION SERVICES FOR SUBSTANCE ABUSE TREATMENT (11/06/18) GROUP SENIOR ASSET MANAGER FOR SUBSTANCE ABUSE TREATMENT, PSYCHOEDUCATION (09/26/18) GROUP SENIOR ASSET MANAGER FOR SUBSTANCE ABUSE, COGNITIVE BEHAVIORAL (09/26/18) GROUP PSYCHOTHERAPY (11/06/18) INDIV PSYCHOTHERAPY FOR SUBSTANCE ABUSE TREATMENT, SUPPORT (09/26/18) INDIV PSYCHOTHERAPY FOR SUBSTANCE ABUSE, COGNITIV BEHAVIORAL (09/26/18) INDIV PSYCHOTHERAPY FOR SUBSTANCE ABUSE, PSYCHOEDUCATION (09/26/18) INDIVIDUAL PSYCHOTHERAPY, COGNITIVE-BEHAVIORAL (09/26/18) INDIVIDUAL PSYCHOTHERAPY, SUPPORTIVE (11/06/18) MEDICATION MANAGEMENT (11/06/18) MEDS MGMT FOR SUBSTANCE ABUSE TREATMENT, METHADONE MAINT (11/06/18) MEDS MGMT FOR SUBSTANCE ABUSE TREATMENT, NICOTINE REPLACE (11/06/18) Family History: States: Unknown Family Hx - Social History Hx Tobacco Use: Yes Hx Alcohol Use: No (DENIED) Hx Substance Use: Yes - Immunization History Hx Tetanus Toxoid Vaccination: No Hx Influenza Vaccination: No Hx Pneumococcal Vaccination: No Review Of Systems Constitutional: Negative for: Fever, Chills Cardiovascular: Negative for: Chest Pain Respiratory: Negative for: Shortness of Breath Gastrointestinal: Negative for: Nausea, Vomiting, Abdominal Pain Skin: Negative for: Rash Psych: Positive for: Depression, Suicidal ideation Physical Exam - Physical Exam Appears: Non-toxic, No Acute Distress, Other ( male) Skin: Normal Color, Warm, Dry Head: Atraumatic, Normacephalic Eye(s): bilateral: Normal Inspection Neck: Normal ROM, Supple Chest: Symmetrical Cardiovascular: Rhythm Regular Respiratory: Normal Breath Sounds, No Rales, No Rhonchi, No Wheezing Extremity: Normal ROM, No Tenderness Neurological/Psych: Oriented x3, Normal Speech, Normal Cognition Gait: Steady ED Course And Treatment - Laboratory Results Result Diagrams: 03/17/19 22:39 03/17/19 22:39 Lab Results: Total Bilirubin 0.9 mg/dL (0.2-1.3) 03/17/19 22:39 AST 77 U/L (17-59) H D 03/17/19 22:39 ALT 72 U/L (21-72) D 03/17/19 22:39 Alkaline Phosphatase 118 U/L (38-126) 03/17/19 22:39 Total Protein 7.8 g/dL (6.3-8.3) 03/17/19 22:39 Albumin 3.8 g/dL (3.5-5.0) 03/17/19 22:39 Globulin 4.0 gm/dL (2.2-3.9) H 03/17/19 22:39 Albumin/Globulin Ratio 0.9 (1.0-2.1) L 03/17/19 22:39 Urine Color [place] (YELLOW) 03/17/19 22:12 Urine Clarity Clear (Clear) 03/17/19 22:12 Urine pH 5.0 (5.0-8.0) 03/17/19 22:12 Ur Specific [place] 1.028 (1.003-1.030) 03/17/19 22:12 Urine Protein Negative mg/dL (NEGATIVE) 03/17/19 22:12 Urine Glucose (UA) Normal mg/dL (Normal) 03/17/19 22:12 Urine Ketones Negative mg/dL (NEGATIVE) 03/17/19 22:12 Urine Blood Negative (NEGATIVE) 03/17/19 22:12 Urine Nitrate Negative (NEGATIVE) 03/17/19 22:12 Urine Bilirubin Negative (NEGATIVE) 03/17/19 22:12 Urine Urobilinogen 4.0 mg/dL (0.2-1.0) 03/17/19 22:12 Ur Leukocyte Esterase Neg Dea/uL (Negative) 03/17/19 22:12 Urine WBC (Auto) < 1 /hpf (0-5) 03/17/19 22:12 Urine RBC (Auto) < 1 /hpf (0-3) 03/17/19 22:12 Ur Squamous Epith Cells < 1 /hpf (0-5) 03/17/19 22:12 Urine Bacteria Rare (<OCC) 03/17/19 22:12 Lab Interpretation: Abnormal (tox + opiates, benzo's, cocaine) O2 Sat by Pulse Oximetry: 99 (ON RA) Pulse Ox Interpretation: Normal Reevaluation Time: 00:03 Reassessment Condition: Unchanged Medical Decision Making Medical Decision Making: Plan: * Labs * 1:1 Obs * UA homeless, depression, polysubstance abuse Disposition Doctor Will See Patient In The: Hospital Counseled Patient/Family Regarding: Studies Performed, Diagnosis - Disposition Disposition: HOSPITALIZED Disposition Time: 00:04 Condition: GOOD Forms: [facility] (Rwandan) - Clinical Impression Clinical Impression: Opioid use disorder, Depression - Scribe Statement The provider has reviewed the documentation as recorded by the Scribsharon Paredes All medical record entries made by the Porshaibsharon were at my direction and personally dictated by me. I have reviewed the chart and agree that the record accurately reflects my personal performance of the history, physical exam, medical decision making, and the department course for this patient. I have also personally directed, reviewed, and agree with the discharge instructions and disposition.
--- NOTE | 2019-03-18 01:28 | PCM.BM ---
<Huber Wise - Last Filed: 03/18/19 01:24> Treatment Plan Problems - Problems identified on initial assessmt Hopelessness/Helplessness Date Initiated: 03/18/19 Time Initiated: 00:55 Assessment reference: NA Status: Active (Contracted for safety) Feelings of Worthlessness Date Initiated: 03/18/19 Time Initiated: 00:55 Assessment reference: NA Status: Active (Contracted for safety) Treatment assets and liabiliti Patient Assests: self-reliant, physically healthy, negotiates basic needs Patient Liabilities: live alone (Currently homeless), financial problems, substance abuse (Opiates, Cocaine, Benzodiazepines) - Milieu Protocol Maintain good personal hygiene: daily Encourage regular showers, daily Remind patient to perform daily oral care, daily Assist patient to perform ADL's Conduct patient checks and document Observation sheet: Q15 minutes Maintain personal safety: every shift Educate patient to report safety concerns to staff, every shift Monitor environment for contraband/sharps Medication safety: Monitor for expected outcome, potential side effects: every shift, Assess barriers to learning: every shift, Assess readiness for medication education: every shift <Brenda Starr - Last Filed: 03/22/19 22:48> - Diagnosis (1) Opioid use disorder Status: Acute Interventions: 03/22/19 22:48 * Assess 7x/week regarding severity of withdrawal * Educate regarding risks, benefits, side effects and alternatives of medications * Use Motivational Interviewing for abstinence * Use CBT for relapse prevention * Medication management for withdrawal symptoms * Encourage medication assisted treatment * (2) Major depressive disorder, recurrent severe without psychotic features Status: Acute Interventions: 03/22/19 22:52 * Assess/adjust medications daily and /or as needed * See patient on an individual basis 7x/week to assess symptoms of depression * Monitor for side effects & effectiveness of medications * <Scarlett Marie - Last Filed: 03/23/19 15:22> Family Contact Family involvement: Patient does not wish Family/SO involvement Family contact: Patient declines to allow family contact at present - Goals for Treatment Patient goals for treatment: "I want to go to a methadone clinic." Discharge/Continuing Care - Education Needs Education Needs: Patient Medication, Patient Coping Skills, Patient Placement options, Patient Community resources - Discharge Discharge Criteria: Free of Suicidal thoughts, Normal sleep pattern, Ability to care for self, No longer exhibiting s/s of withdrawal, Reduction of target symptoms Discharge to:: Home - Treatment Team Participation Discussed with Family/SO: No Was Patient/Family/SO present at Treatment Team Meeting: Yes
--- NOTE | 2019-03-18 10:58 | PCM.PSYCH ---
Initial Psychiatric Evaluation - Initial Psychiatric Evaluation Type of Admission: Voluntary Legal Status: Capacity Chief Complaint (in patient's own words): "I am so depressed" History of Present Illness and Precipitating Events: Patient is a 44 year-old, male, who is single, unemployed, and homeless living in [place], [place]. He has a halfway girlfriend and six children, including a 4 month old boy. He comes to [facility] due to suicidal ideations, opioid and xanax use. He says has had thoughts of committing suicide with a plan and has suffered from depression since the age of 19. He currently reports depressed mood, suicidal ideation (wishing to disappear) and feelings of worthlessness, but was too fatigued to provide details. He contracts for safety, though. He last used heroin yesterday and injects 25 bags of heroin per day on average. He also admits to taking up to 6mg of Xanax per day, drinking around 1.5 pints of liquor per day, and using up to 1/4 of a gram of cocaine per day. He last used cocaine yesterday, Mar 17 2019. According to his chart, he has a >20 year history of heroin, cocaine and Xanax use. He has been to detox and rehab multiple times and his longest length of sobriety was for 7 years in his late 20s to early 30s. He was at [facility] on the inpatient psychiatry floor in October of 2018 for major depression and opioid use disorder. He was discharged to the [employer] in [place], where he was living and working before his previous relapse. Around one month ago, he was hospitalized in at [facility] in [place], [place], for throwing up blood where he received treatment for several weeks. He has liver cirrhosis Past Psychiatric History: depression with >5 hospitalizations related to psychiatric illness Family Psych History: mother with depression Past Medical History: hepatitis C, liver cirrhosis Current Medications: Active Medications Generic Name Dose Route Start Last Admin Trade Name Freq PRN Reason Stop Dose Admin Acetaminophen 650 mg 03/18/19 10:54 Tylenol 325mg Tab PO Q6 PRN Pain, moderate (4-7) Al Hydrox/Mg Hydrox/Simethicone 30 ml 03/18/19 10:53 Maalox 30 Ml PO TID PRN Indigestion / Heartburn Bupropion HCl 150 mg 03/18/19 11:00 Wellbutrin Xl PO DAILY [facility] Clonidine HCl 0.1 mg 03/18/19 10:53 Catapres PO Q4 PRN COWS Score More or Equal to 5 Dicyclomine HCl 10 mg 03/18/19 10:53 Bentyl PO Q6 PRN Muscle spasm Loperamide HCl 2 mg 03/18/19 10:53 Imodium PO Q8 PRN Diarrhea Mirtazapine 15 mg 03/18/19 22:00 Remeron PO HS [facility] Nicotine 1 patch 03/18/19 11:00 Nicoderm Cq TD DAILY [facility] Ondansetron HCl 4 mg 03/18/19 10:53 Zofran Tab PO Q8 PRN Nausea/Vomiting Pneumococcal Polyvalent Vaccine 0.5 ml 03/21/19 10:00 Pneumovax 23 Vaccine IM 03/21/19 10:01 .ONCE ONE Trazodone HCl 50 mg 03/18/19 10:54 Desyrel PO HS PRN Insomnia Past Psychiatric History - Past Psychiatric History Previous Treatment History: Inpatient Pertinent Medical Hx (Current Medical&Sleep Prob, Allergies): Allergies Allergy/AdvReac Type Severity Reaction Status Date / Time No Known Allergies Allergy Verified 11/06/18 01:50 Gabapentin [Neurontin] 300 mg PO BID #60 cap 09/14/18 buPROPion XL [Wellbutrin XL] 150 mg PO DAILY #30 t24 09/30/18 traZODone [Desyrel] 100 mg PO HS #30 tab 09/30/18 Gabapentin [Neurontin] 300 mg PO TID #90 cap 11/10/18 Mirtazapine [Remeron] 30 mg PO HS #30 tab 11/10/18 buPROPion XL [Wellbutrin XL] 100 mg PO DAILY #30 t24 11/11/18 Review of Systems - Psychiatric Psychiatric: Anhedonia, Anxiety, Behavioral Changes, Change in Appetite, Depression, Difficulty Concentrating, Hopelessness, Irritability, Mood Swings, Paranoia, Suicidal Ideation (no plan or intention). absent: Hallucinations, Homicidal Ideation Mental Status Examination - Personal Presentation Personal Presentation: Looks stated age (unkempt) - Affect Affect: Constricted - Motor Activity Motor Activity: Psychomotor Agitation - Reliability in Providing Information Reliability in Providing Information: Fair - Speech Speech: Organized - Mood Mood: Depressed, Anxious - Formal Thought Process Formal Thought Process: No Impairment - Cognitive Functions Orientation: Person, Place, Situation, Time Sensorium: Drowsy Attention/Concentration: Easily distracted Abstract Thinking: [place] Estimate of Intelligence: Average Judgement: Intact, as evidence by: Insight regarding need for hospitalization Memory: Recent intact, as evidence by: Ability to recall events of the day, Remote impaired as evidenced by: Inability to recall sig life events - Risk Risk: Withdrawal, Diminished functioning - Strength & Assets Inventory Strength & Assets Inventory: Cooperative DSM 5 DX - DSM 5 DSM 5 Diagnosis: Major Depressive Disorder, recurrent, severe without psychosis 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 Alcohol use d/o - severe Opioid withdrawal Opioid use d/osevere Personality d/o - unspecified - Recommended/Plan of Treatment Treatment Recommendations and Plan of Treatment: Remeron and Wellbutrin for depression Taper with Methadone Taper with lorazepam Gabapentin for augmentation if needed As needed medication All risks, benefits and alternatives of the meds discussed and the patient agreed and understood Attend groups and activities Supportive therapy and psychoeducation [place] for abstinence CBT for relapse prevention Encourage MAT Refer to rehab or IOP, and self-help groups Teach healthy lifestyle methods, i.e. diet, exercise, meditation Smoking cessation with [place] Nicotine patch if needed 33 min Projected ELOS: 7-8 days - Smoking Cessation Smoking Cessation Initiated: Yes
[2019-03-18] MEDS ORDERED: Aluminum Hydroxide/Magnesium Hydroxide Susp (30 mL) PO PRN (11:07)
[2019-03-18] MEDS: Multiple Vitamins Tab PO SCH (11:29)
[2019-03-18] MEDS: buPROPion 150 mg/24 Hours XL Tab PO SCH (11:30)
[2019-03-19] MEDS: Multiple Vitamins Tab PO SCH (09:19)
[2019-03-19] MEDS: buPROPion 150 mg/24 Hours XL Tab PO SCH (09:19)
--- NOTE | 2019-03-19 20:04 | PCM.PYCHPN ---
Psychiatric Progress Note - Psychiatric Progress Note Patient seen today, length of contact: 15 Mins Patient Chief Complaint: "I still feel sick" Problems Identified/Issues Discussed: Patient was seen and chart was reviewed. Case was discussed with treatment team. Issues related to the illness and treatments were discussed with the patient, and issues related to illness and treatments were discussed with the patient and staff. Patient reported compliance with treatment and no adverse effects from the medications were reported. Patient is tolerating treatment well at this time. Patient still reports some withdrawal symptoms such as body aches, sweating, nausea, decreased sleep, and fatigue. Patient reports mood as improved, affect is congruent with mood. Aftercare was discussed with patient and he verbalized understanding. Patient denies any delusions, auditory/visual hallucinations, or perceptual disturbances. Patient also denies any suicidal or homicidal ideation/plan/intent at this time. Medication Change: Yes (Detox cahnges daily) Medical Record Reviewed: Yes Mental Status Examination - Cognitive Function Orientation: Person, Place, Situation, Time Attention: WNL Concentration: WNL - Mood Mood: Depressed, Anxious - Affect Affect: Constricted - Speech Speech: Appropriate - Formal Thought Process Formal Thought Process: No Impairment - Suicidal Ideation Suicidal Ideation: No - Homicidal Ideation Homicidal Ideation: No Goal/Treatment Plan - Goal/Treatment Plan Need for Continued Stay: Remain at risks for inpatient hospitalization, Discharge may exacerbated symptoms, Severe functional impairment Progress Toward Problem(s) and Goals/Treatment Plan: Continue medications Support and psychoeducation daily Attend groups and activities daily Individual therapy After care planning by MALACHI and the team
[2019-03-20] MEDS: buPROPion 150 mg/24 Hours XL Tab PO SCH (09:11)
[2019-03-20] MEDS: Multiple Vitamins Tab PO SCH (09:11)
[2019-03-21] MEDS: Multiple Vitamins Tab PO SCH (09:14)
[2019-03-21] MEDS: buPROPion 150 mg/24 Hours XL Tab PO SCH (09:14)
[2019-03-21] MEDS ORDERED: Pneumococcal 23-Valent Vaccine IM ONE (10:00)
--- NOTE | 2019-03-21 22:56 | PCM.PYCHPN ---
Psychiatric Progress Note - Psychiatric Progress Note Patient seen today, length of contact: 15 Mins Patient Chief Complaint: "I am doing better today" Problems Identified/Issues Discussed: The pt is seen, chart reviewed, case is discussed with staff. Support and psychoeducation given, CBT and [place] used briefly The pt is improving slowly but needs more time due to severity of symptoms and relapse risk. Patient was seen active in the milieu today, but reports that he still does not have an appetite No SEs from medications, risks discussed. After care discussed Medication Change: Yes (Detox cahnges daily) Medical Record Reviewed: Yes Mental Status Examination - Cognitive Function Orientation: Person, Place, Situation, Time Attention: WNL Concentration: WNL - Mood Mood: Depressed, Anxious - Affect Affect: Constricted - Speech Speech: Appropriate - Formal Thought Process Formal Thought Process: No Impairment - Suicidal Ideation Suicidal Ideation: No - Homicidal Ideation Homicidal Ideation: No Goal/Treatment Plan - Goal/Treatment Plan Need for Continued Stay: Remain at risks for inpatient hospitalization, Discharge may exacerbated symptoms, Severe functional impairment Progress Toward Problem(s) and Goals/Treatment Plan: Continue medications Support and psychoeducation daily Attend groups and activities daily Individual therapy After care planning by MALACHI and the team
[2019-03-22 07:12] VITALS: O2SAT 98
[2019-03-22] MEDS: buPROPion 150 mg/24 Hours XL Tab PO SCH (09:03)
[2019-03-22] MEDS: Multiple Vitamins Tab PO SCH (09:03)
--- NOTE | 2019-03-22 13:28 | PCM.PYCHPN ---
Psychiatric Progress Note - Psychiatric Progress Note Patient seen today, length of contact: 16 min Patient Chief Complaint: "I am not good" Problems Identified/Issues Discussed: The pt is seen, chart reviewed, case discussed with staff. Support and psychoeducation given, CBT and [place] used briefly. Pt is improving slowly but needs more time, still has ongoing withdrawal symptoms and high risk of relapse. He reports feelings of guilt and hopelessness. He is compliant with medications and reports no SEs. Risks discussed. After care discussed Medication Change: Yes (Detox cahnges daily) Medical Record Reviewed: Yes Mental Status Examination - Cognitive Function Orientation: Person, Place, Situation, Time Memory: Impaired Attention: WNL Concentration: WNL Association: WNL Fund of Knowledge: WNL - Mood Mood: Depressed, Anxious - Affect Affect: Constricted - Speech Speech: Appropriate - Formal Thought Process Formal Thought Process: No Impairment - Suicidal Ideation Suicidal Ideation: No - Homicidal Ideation Homicidal Ideation: No Goal/Treatment Plan - Goal/Treatment Plan Need for Continued Stay: Remain at risks for inpatient hospitalization, Discharge may exacerbated symptoms, Severe functional impairment Progress Toward Problem(s) and Goals/Treatment Plan: Remeron and Wellbutrin for depression Taper with Methadone Taper with lorazepam Gabapentin for augmentation if needed As needed medication All risks, benefits and alternatives of the meds discussed and the patient agreed and understood Attend groups and activities Supportive therapy and psychoeducation [place] for abstinence CBT for relapse prevention Encourage MAT Refer to rehab or IOP, and self-help groups Teach healthy lifestyle methods, i.e. diet, exercise, meditation Smoking cessation with [place] Nicotine patch if needed
[2019-03-23 06:48] VITALS: RESP 18
[2019-03-23] MEDS: Multiple Vitamins Tab PO SCH (09:11)
[2019-03-23] MEDS: buPROPion 150 mg/24 Hours XL Tab PO SCH (09:12)
--- NOTE | 2019-03-23 12:27 | PCM.PYCHPN ---
Psychiatric Progress Note - Psychiatric Progress Note Patient seen today, length of contact: 16 min Patient Chief Complaint: "I am not good" Problems Identified/Issues Discussed: The pt is seen again, chart reviewed, and case is discussed with the team. The pt denies any side-effects from meds. Ativan given bc of excessive anxiety Attends activities and groups, brief individual therapy provided Not ready for discharge due to ongoing symptoms and high relapse risk. After care discussed again. Medication Change: Yes (Detox cahnges daily) Medical Record Reviewed: Yes Mental Status Examination - Cognitive Function Orientation: Person, Place, Situation, Time Memory: Impaired Attention: WNL Concentration: WNL Association: WNL Fund of Knowledge: WNL - Mood Mood: Depressed, Anxious - Affect Affect: Constricted - Speech Speech: Appropriate - Formal Thought Process Formal Thought Process: No Impairment - Suicidal Ideation Suicidal Ideation: No - Homicidal Ideation Homicidal Ideation: No Goal/Treatment Plan - Goal/Treatment Plan Need for Continued Stay: Remain at risks for inpatient hospitalization, Discharge may exacerbated symptoms, Severe functional impairment Progress Toward Problem(s) and Goals/Treatment Plan: Remeron and Wellbutrin for depression Taper with Methadone Taper with lorazepam Gabapentin for augmentation if needed As needed medication All risks, benefits and alternatives of the meds discussed and the patient agreed and understood Attend groups and activities Supportive therapy and psychoeducation [place] for abstinence CBT for relapse prevention Encourage MAT Refer to rehab or IOP, and self-help groups Teach healthy lifestyle methods, i.e. diet, exercise, meditation Smoking cessation with [place] Nicotine patch if needed
[2019-03-24 06:43] VITALS: BP 93/60; PULSE 68; TEMP 97.7
[2019-03-24] MEDS: Multiple Vitamins Tab PO SCH (09:12)
[2019-03-24] MEDS: buPROPion 150 mg/24 Hours XL Tab PO SCH (09:12)
--- NOTE | 2019-03-24 09:44 | PCM.PYCHDC ---
Mental Status Examination - Mental Status Examination Orientation: Person Discharge Summary - Discharge Note Consultations:: List each consultation separately and include: 1. Reason for request. 2. Findings. 3. Follow-up Summary of Hospital Course include:: 1. Description of specific treatment plan utilized for patients during their course of treatmen. 2. Summarize the time- course for resolution of acute symptoms and/or regressed behaviors. 3. Describe issues identified and worked on during hospitalization. 4. Describe medication utilized. 5. Describe medical problems identified and treated. 6. Reassessment of suicide risk Summary of Hospital Course: Patient is a 44 year-old, male, who is single, unemployed, and homeless living in [place], [place]. He has a residential girlfriend and six children, including a 4 month old boy. He comes to [facility] due to suicidal ideations, opioid and xanax use. He says has had thoughts of committing suicide with a plan and has suffered from depression since the age of 19. He currently reports depressed mood, suicidal ideation (wishing to disappear) and feelings of worthlessness, but was too fatigued to provide details. He contracts for safety, though. He last used heroin yesterday and injects 25 bags of heroin per day on average. He also admits to taking up to 6mg of Xanax per day, drinking around 1.5 pints of liquor per day, and using up to 1/4 of a gram of cocaine per day. He last used cocaine yesterday, Mar 17 2019. According to his chart, he has a >20 year history of heroin, cocaine and Xanax use. He has been to detox and rehab multiple times and his longest length of sobriety was for 7 years in his late 20s to early 30s. He was at [facility] on the inpatient psychiatry floor in October of 2018 for major depression and opioid use disorder. He was discharged to the [facility] in [place], where he was living and working before his previous relapse. Around one month ago, he was hospitalized in at [facility] in [place], [place], for throwing up blood where he received treatment for several weeks. He has liver cirrhosis Past Psychiatric History: depression with >5 hospitalizations related to psychiatric illness Family Psych History: mother with depression Past Medical History: hepatitis C, liver cirrhosis He will go to [facility] - Diagnosis (1) Opioid use disorder Current Visit: Yes Status: Acute (2) Major depressive disorder, recurrent severe without psychotic features Current Visit: No Status: Acute - Final Diagnosis (DSM 5) Condition upon Discharge: GOOD Disposition: HOME/ ROUTINE Follow-up Treatment Plan: Remeron and Wellbutrin for depression Taper with Methadone Taper with lorazepam Gabapentin for augmentation if needed As needed medication All risks, benefits and alternatives of the meds discussed and the patient agreed and understood Attend groups and activities Supportive therapy and psychoeducation NM for abstinence CBT for relapse prevention Encourage MAT Refer to rehab or IOP, and self-help groups Teach healthy lifestyle methods, i.e. diet, exercise, meditation Smoking cessation with NM Nicotine patch if needed Prescriptions/Medication Reconciliation: buPROPion XL [Wellbutrin XL] 300 mg PO DAILY #30 t24 Gabapentin [Neurontin] 300 mg PO TID #90 cap hydrOXYzine HCl [Atarax] 50 mg PO DAILY PRN #30 tab PRN Reason: Anxiety Mirtazapine [Remeron] 15 mg PO HS #30 tab
== END 2019-03-24 11:49 | disposition home or self-care (01) | DRG 885 ==
LOC: C.ER 21:20 → C.5E 03-18 00:04
PROVIDERS: ADMIT Psychiatry & Neurology Psychiatry; ATTEND Psychiatry & Neurology Psychiatry
PROC: GZ56ZZZ Individual Psychotherapy, Supportive (ICD-10-PCS; principal; 2019-03-18)
DX: F33.2 Major depressive disorder, recurrent severe without psychotic features (principal); R45.851 Suicidal ideations; F11.23 Opioid dependence with withdrawal; K74.60 Unspecified cirrhosis of liver; Z59.0 Homelessness; Z87.891 Personal history of nicotine dependence; F13.90 Sedative, hypnotic, or anxiolytic use, unspecified, uncomplicated; F14.10 Cocaine abuse, uncomplicated